=== PATIENT | female | born 1940 ===

== ENCOUNTER → 2023-12-17 12:22 | Outpatient (REF) | payer MEDICARE, SELFPAY ==
[2023-12-18 12:55] LABS: Urine Albumin Trace (Neg - Trace); Urine Bilirubin Negative (Negative); Urine Character Clear (Clear); Urine Color Yellow; Urine Glucose Negative (Negative); Urine Ketone Trace (Negative); Urine Leukocyte Trace (Negative); Urine Nitrite Negative (Negative); Urine Occult Blood Negative (Negative); Urine Urobilinogen Negative (Neg - 1+)
[2023-12-18 13:21] LABS: Urine Mucus Many
[2023-12-18 13:22] LABS: Urine Amorphous Seen; Urine Red Blood Cell 0-2 /HPF (0-2); Urine Squamous Cell 0-2 /LPF (Few); Urine Urothelial Cell 0-2 /LPF (FEW); Urine White Cell 0-2 /HPF (0-5)
== END ==
LOC: OLABSOL 12:22
PROVIDERS: ATTENDING PHYSICIAN Nurse Practitioner Gerontology
DX: N39.0 Urinary tract infection, site not specified (principal)
CPT/HCPCS: 81003; 81015; 87086

== ENCOUNTER → 2023-12-18 11:43 | Outpatient (REF) | payer MEDICARE, SELFPAY ==
[2023-12-18 12:52] LABS: % Basophils 0.7 % (0-2); % Eosinophils 4.1 % (0-6); % Immature Granulocytes 0.2 % (0-0.5); % Lymphocytes 31.8 % (20.5-51.1); % Monocytes 12.5 % (1.7-9.3); % Neutrophils 50.7 % (42.2-75.2); Absolute Eosinophils 0.3 10^3/uL (0-0.7); Absolute Lymphocytes 1.9 10^3/uL (1.2-3.4); Absolute Monocytes 0.8 10^3/uL (0.1-0.6); Absolute Neutrophils 3.1 10^3/uL (1.4-6.5); Hematocrit 34.2 % (37.0-47.0); Hemoglobin 11.3 g/dL (12.0-16.0); Mean Corpuscular Hgb 28.4 pg (27.0-31.0); Mean Corpuscular Volume 85.9 fL (81.0-99.0); Mean Platelet Volume 10.4 fL (7.4-10.4); Nucleated Red Blood Cells % 0 %; Platelet Count 218 10^3/uL (130-400); Red Blood Cell Count 3.98 10^6/uL (4.20-5.40); White Blood Cell Count 6.1 10^3/uL (4.8-10.8)
[2023-12-18 13:05] LABS: ALT (SGPT) 12 U/L (0-35); AST (SGOT) 26 U/L (14-36); Albumin 3.4 g/dl (3.5-5.0); Alkaline Phosphatase 97 U/L (38-126); Blood Urea Nitrogen 19 mg/dl (7-17); Calcium 8.9 mg/dl (8.4-10.2); Carbon Dioxide 26 mmol/L (22-30); Chloride 105 mmol/L (98-107); Glucose 85 mg/dl (70-99); HDL Cholesterol 39 mg/dl; LDL Cholesterol, Calculated 118 mg/dl; Sodium 136 mmol/L (135-145); Total Cholesterol 172 mg/dl (50-199); Total Protein 6.4 g/dl (6.3-8.2); Triglyceride 78 mg/dl (10-149); Very Low Density Lipoprotein 15 mg/dl (0-30); eGFR > 60.00
[2023-12-18 13:21] LABS: Free T4 0.98 ng/dl (0.78-2.19)
[2023-12-18 13:34] LABS: TSH 2.49 uIU/ml (0.47-4.68)
[2023-12-18 13:54] LABS: Vitamin B12 545 pg/ml (239-931)
[2023-12-18 14:56] LABS: Glycohemoglobin (HgbA1c) 5.5 % (4.0-5.6)
== END ==
LOC: OLABSOL 11:43
PROVIDERS: ATTENDING PHYSICIAN Nurse Practitioner Gerontology
DX: D64.9 Anemia, unspecified (principal); N39.0 Urinary tract infection, site not specified; D51.9 Vitamin B12 deficiency anemia, unspecified; E03.9 Hypothyroidism, unspecified; E78.5 Hyperlipidemia, unspecified; E55.9 Vitamin D deficiency, unspecified; E11.9 Type 2 diabetes mellitus without complications
CPT/HCPCS: 36415; 80053; 80061; 82306; 82607; 83036; 83735; 84439; 84443; 85025

== ENCOUNTER 2023-12-24 19:19 | Emergency (ER) | payer OTHER, SELFPAY ==
[2023-12-24 19:25] VITALS: BP 122/75
[2023-12-24 22:00] VITALS: BP 127/76
--- NOTE | 2023-12-24 23:00 | ED.GENMED ---
History of Present Illness
General
Chief Complaint: Fall
Source: family (Daughter)
Exam Limitations: dementia (But will answer some questions)
Travel History
Have you had any contact with someone who has COVID-19?: No
Do you have any symptoms of coronavirus? Fever > 100 degrees, chills, cough, shortness of breath, sore throat, loss of taste or smell, muscle aches, or headache?: No
History of Present Illness
History of Present Illness:
This is a 83 year old male that is brought in by ambulance with c/o fall. Daughter states that he is from [place]. States that he has only been there for a week and 2 days. States that he fell last night as he slid of the bed and he was fine. States
that he fell at 5:30am today and then again at 6:30pm. States that it was unwitnessed and they believe that patient hit his head on the Bedside table. States that she does not believe that there was any LOC. States that he has had a cough for the
past few weeks and it is getting better. States that he has an appointment tomorrow with the PCP and the Psychiatrist as he has not been sleeping well and getting up at night. Denies any fever, chills, chest pain, SOB, abd pain, nausea, vomiting,
diarrhea, headache, urinary burning.
Past History
Past History
ED Past Medical History: COPD, [place], Psychiatric (Anxiety, Depression) and Other (Alzheimer's Dementia)
ED Past Surgical History: Cardiac (Stent)
Social History
Tobacco: Former smoker
Alcohol: None
Personal:
Living: [facility]
Review of Systems
Review of Systems
Unable to obtain full review of systems at this time due to: dementia
Other source history: family
All Other Systems: ROS reviewed and negative except as documented in HPI and ROS
Constitutional: Reports no symptoms; Denies fever or chills
EENT: Reports no symptoms
Respiratory: Reports cough; Denies trouble breathing
Cardiac: Reports no symptoms; Denies chest pain
ABD/GI: Reports no symptoms; Denies abdominal pain, nausea, vomiting or diarrhea
: Reports no symptoms; Denies dysuria, frequency or urgency
Musculoskeletal: Reports no symptoms
Skin: Reports no symptoms
Neurological: Reports no symptoms; Denies dizzy or headache
Psychiatric: Reports no symptoms
Phy Exam
General Physical Exam
General Presentation: no apparent distress
General age: appears stated age
General Skin: warm and dry
General Habitus: elderly
General Mental: usual mental status
General Hydration: appears well hydrated
ENT Exam
ENT Exam: TM's normal, pharynx normal and neck supple
Eye Exam
Eye Exam: EOMI
Cardiovascular Exam
Cardiovascular Exam: regular rate/rhythm, no edema and normal peripheral pulses
Pulmonary Exam
Pulmonary Exam: lungs clear, no respiratory distress, no rales, chest non tender, no crackles, no rhonchi, no wheezing and no cough
Gastrointestinal Exam
Gastrointestinal Exam: normal bowel sounds, non tender, soft, no organomegaly, no pulsatile mass and non distended
Musculoskeletal Exam
Musculoskeletal Exam: full ROM, no edema and other (Negative for any cervical neck or spinal tenderness. Negative for discomfort with flexion of the knee's, inversion or eversion. )
Skin Exam
Skin Exam: normal color, warm/dry, no rash, no petechia and other (abrasion to the right forehead)
Psychiatric Exam
Psychiatric Exam: normal mood/affect
Course
Orders/Labs/Results
Orders:
Orders
12/24/23 19:29
CT Head W/o Iv Contrast Urgent
Comment: bruising to right forehead
Reason For Exam: fall, headstrike. unwitnessed.
12/24/23 19:30
Cervical Spine wo Contrast CT [CT Cervical Spine W/o Iv Contr] Urgent
Comment:
Reason For Exam: fall, headstrike. Hx of dementia.
12/24/23 23:00
0.9% Sodium Chloride 500 ml [Nss] 500 ml IV BOLUS
12/24/23 23:49
Complete Blood Count/With Diff Urgent
Comprehensive Metabolic Panel Urgent
Abnormal Lab Results
12/24/23
23:49
RBC 4.03 L 10^6/uL
(4.70-6.10)
Hgb 11.4 L g/dL
(13.0-18.0)
Hct 33.4 L %
(39.0-52.0)
Absolute Monos (auto) 0.7 H 10^3/uL
(0.1-0.6)
Monocytes % 11.0 H %
(1.7-9.3)
Eosinophils % 7.0 H %
(0-6)
Potassium 3.4 L mmol/L
(3.5-5.1)
Chloride 109 H mmol/L
(98-107)
BUN 31 H mg/dl
(9-20)
12/24/23 23:49
12/24/23 23:49
H/H slightly low. Chloride slightly elevated. Dehydration.
Vital Signs
Initial and Last Documented VS:
Initial Vital Signs
Temp Pulse Resp BP Pulse Ox
97.7 F 58 18 122/75 96
12/24/23 19:25 12/24/23 19:25 12/24/23 19:25 12/24/23 19:25 12/24/23 19:25
Last Documented Vital Signs
Temp Pulse Resp BP Pulse Ox
97.7 F 48 18 115/70 99
12/24/23 19:25 12/24/23 23:52 12/24/23 19:25 12/24/23 23:52 12/24/23 23:52
MDM/Problems Addressed
Differential Diagnosis Includes:
Accidental fall,
MDM/Problems Addressed:
This is a 83 year old male that comes in with c/o fall. Daughter states that the patient has fallen several times in the past 2 days. States that they checked a urine and this is negative. States that she is concerned that he is dehydrated. States
that he is meeting with the PCP and his Psychiatrist tomorrow and they are going to change his medications around.
Will get CT head and neck. Will check labs and given IV fluids.
Chronic conditions affecting care:
Dementia
Acute Exacerbation and/or Progression of Chronic Illness:
Dementia
*Radiology
Radiology exam reviewed: radiology read reviewed (CT head-No evidence of acute intracranial abnormality. CT cervical spine-NO evidence of acute intracranial abnormality. Patchy reticulonodular increased markings within the visualized upper lungs,
most likely representing chronic parenchymal disease/fibrosis, but with no comparison examination of) and other (CT cont- of the chest available. )
*Pulse Oximetry
Patient hypoxic: no
*EKG
Interpreted by ED Provider?: NA
Rate: EKG- N/A
*Station Mechanic Apprentice Interpretation
Rate: Station Mechanic Apprentice- N/A
*Critical Care Note
Total Time (30-74mins, 75-104mins- exclusive of procedures): Not Applicable
ED Attending Note
-
Portions of this chart may have been created with voice recognition software.� Occasional wrong word or��sound alike� substitutions may have occurred due to the inherent limitations of voice recognition software.
Discharge Plan
Departure
Patient Disposition: Shelter/SNF
Date of Disposition: 12/25/23
Time of Disposition: 00:30
Patient with high blood pressure during this ER visit?: No
Condition: Good
Covid-19: Not Applicable
Discharge Problem:
Accidental fall, Abrasion of forehead, Dehydration
Instructions: Skin Abrasions (DC), Dehydration, Adult ED, Fall Prevention for Older Adults
Referrals:
Jen Hall, [Family Provider] - Follow up in 2-3 days
Activity Restrictions/Additional Instructions:
As discussed, patient CT of the head and cervical spine is negative. Patient was given IV fluids to help with dehydrated. Please increase patient water intake to 8-8oz glasses daily. Please follow up with the family doctor and the Psychiatrist as
scheduled tomorrow. IF YOU HAVE ANY OTHER CONCERNS PLEASE RETURN TO THE EMERGENCY ROOM.
Interventions
Interventions:
*Risk Screen - Suicide Last Done: 12/24/23 19:25
*General Assessment Last Done: 12/24/23 19:25
*Neglect/Abuse Screening Last Done: 12/24/23 19:25
ED- Neurological Assessment Last Done: 12/24/23 21:58
Discharge Date and Time
Print Language: ITALIAN
[2023-12-24] MEDS: NSS 500 IV (23:48)
[2023-12-24 23:52] VITALS: BP 115/70
[2023-12-25 00:05] LABS: % Basophils 0.8 % (0-2); % Immature Granulocytes 0.2 % (0-0.5); % Lymphocytes 32.8 % (20.5-51.1); % Neutrophils 48.2 % (42.2-75.2); Absolute Basophils 0.1 10^3/uL (0-0.2); Absolute Eosinophils 0.4 10^3/uL (0-0.7); Absolute Lymphocytes 2.1 10^3/uL (1.2-3.4); Absolute Monocytes 0.7 10^3/uL (0.1-0.6); Hematocrit 33.4 % (39.0-52.0); Hemoglobin 11.4 g/dL (13.0-18.0); Mean Corp Hgb Conc. 34.1 g/dL (33.0-37.0); Mean Corpuscular Hgb 28.3 pg (27.0-31.0); Mean Corpuscular Volume 82.9 fL (80.0-94.0); Mean Platelet Volume 9.6 fL (7.4-10.4); Nucleated Red Blood Cells % 0 % (-); Platelet Count 231 10^3/uL (130-400); Red Blood Cell Count 4.03 10^6/uL (4.70-6.10); Red Cell Dist. Width 14.3 % (11.5-14.5); White Blood Cell Count 6.3 10^3/uL (4.8-10.8)
[2023-12-25 00:17] LABS: ALT (SGPT) 18 U/L (0-50); AST (SGOT) 34 U/L (17-59); Albumin 3.6 g/dl (3.5-5.0); Alkaline Phosphatase 92 U/L (38-126); Blood Urea Nitrogen 31 mg/dl (9-20); Calcium 9.2 mg/dl (8.4-10.2); Carbon Dioxide 27 mmol/L (22-30); Chloride 109 mmol/L (98-107); Glucose 88 mg/dl (70-99); Potassium 3.4 mmol/L (3.5-5.1); Sodium 141 mmol/L (135-145); Total Bilirubin 0.8 mg/dl (0.2-1.3); Total Protein 6.7 g/dl (6.3-8.2); eGFR > 60.00
[2023-12-25 03:17] VITALS: BP 138/88
[2023-12-25] MEDS: TYLENOL 1000 MG PO (03:24)
== END 2023-12-25 04:07 ==
LOC: EMR 19:19
PROVIDERS: Clinical Nurse Specialist Family Health; EMERGENCY PHYSICIAN Emergency Medicine; FAMILY PHYSICIAN Hospitalist
DX: S09.90XA Unspecified injury of head, initial encounter (principal); S00.81XA Abrasion of other part of head, initial encounter; W19.XXXA Unspecified fall, initial encounter; E86.0 Dehydration; F03.90 Unspecified dementia, unspecified severity, without behavioral disturbance, psychotic disturbance, mood disturbance, and anxiety
CPT/HCPCS: 99284; 96360; 70450; 72125; 80053; 85025

== ENCOUNTER → 2024-05-17 10:12 | Outpatient (REF) | payer OTHER, SELFPAY | LOC: RST 10:12 | DX: J18.9 Pneumonia, unspecified organism (principal); R13.12 Dysphagia, oropharyngeal phase | CPT/HCPCS: 74230; 92611 ==

== ENCOUNTER 2024-09-29 09:17 | Emergency (ER) | payer OTHER, SELFPAY ==
[2024-09-29 09:23] VITALS: BP 104/67
--- NOTE | 2024-09-29 09:41 | ED.GENMED ---
History of Present Illness
General
Chief Complaint: Fall
Time Seen by Provider: 09/29/24 09:27
History of Present Illness
History of Present Illness:
83 yo male presents to the Emergency Department for evaluation after an unwitnessed fall. Found on floor of his nursing facility with blood on his face, was then bathed before sending to the ED. Pt cannot provide any historical details.
Past History
Past History
ED Past Medical History: COPD, [place], Psychiatric (Anxiety, Depression) and Other (Alzheimer's Dementia)
ED Past Surgical History: Cardiac (Stent)
Social History
Tobacco: Former smoker
Alcohol: None
Personal:
Living: residential
Review of Systems
Review of Systems
Allergies reviewed?: Yes
All Other Systems: ROS reviewed and negative except as documented in HPI and ROS
Phy Exam
Physical Exam
Physical Exam:
GEN: Well appearing, NAD, WDWN
HEENT: Minor laceration to R lateral eyebrow w/o bleeding, faint ecchymosis; Oral mucosa moist, no scleral icterus
Cardiac: Regular rate
Lung: No respiratory distress, no tachypnea
MSK: No gross deformity or injuries
Skin: Good color, no pallor or jaundice, no rashes
Neuro: Alert, follows commands, profoundly confused; moves all extremities freely
Psych: Calm, cooperative
Course
Orders/Labs/Results
Orders:
Orders
09/29/24 09:29
Electrocardiogram (*1) Urgent
Reason for Study: Bradycardia / Tachycardia
EKG- Treatment ONCE
09/29/24 09:31
Complete Blood Count/With Diff Urgent
Comprehensive Metabolic Panel Urgent
Magnesium Urgent
09/29/24 09:33
CT Cervical Spine W/o Iv Contr Urgent
Comment:
Reason For Exam: fall
09/29/24 09:34
CT Head W/o Iv Contrast Urgent
Comment:
Reason For Exam: fall head injury
09/29/24 12:15
CR Leg Tibia/fibula Right 2 Vw Urgent
Comment:
Reason For Exam: fall
Abnormal Lab Results
09/29/24
09:31
RBC 4.32 L 10^6/uL
(4.70-6.10)
Hgb 12.4 L g/dL
(13.0-18.0)
Hct 37.1 L %
(39.0-52.0)
Eosinophils % 7.6 H %
(0-6)
BUN 25 H mg/dl
(9-20)
09/29/24 09:31
09/29/24 09:31
Vital Signs
Initial and Last Documented VS:
Initial Vital Signs
Temp Pulse Resp BP Pulse Ox
97.4 F 46 16 104/67 93
09/29/24 09:23 09/29/24 09:23 09/29/24 09:23 09/29/24 09:23 09/29/24 09:23
Last Documented Vital Signs
Temp Pulse Resp BP Pulse Ox
97.4 F 55 18 119/77 98
09/29/24 09:23 09/29/24 13:15 09/29/24 13:15 09/29/24 13:15 09/29/24 13:15
MDM/Problems Addressed
MDM/Problems Addressed:
Imaging reveals no evidence of intracranial or cervical spine injury. Labs are reassuring. No indication for primary closure of the wound to the right side of the head. He does have mild bruising to the anterior right knee and right lower leg
however x-rays show no appreciable fractures. Discharged back to his nursing facility in stable condition
*Critical Care Note
Total Time (30-74mins, 75-104mins- exclusive of procedures): Not Applicable
ED Attending Note
-
Portions of this chart may have been created with voice recognition software.� Occasional wrong word or��sound alike� substitutions may have occurred due to the inherent limitations of voice recognition software.
Discharge Plan
Departure
Patient Disposition: Home (Routine Discharge)
Date of Disposition: 09/29/24
Time of Disposition: 11:02
Patient with high blood pressure during this ER visit?: No
Discharge Problem:
Unwitnessed fall, Eyebrow laceration
Activity Restrictions/Additional Instructions:
CT scans of the head and neck as well as x-ray of the right leg showed no evidence for injuries
Interventions
Interventions:
*Nursing Disposition Last Done: 09/29/24 13:13
Discharge Date and Time
Print Language: SAMMARINESE
[2024-09-29 09:53] LABS: % Basophils 0.7 % (0-2); % Eosinophils 7.6 % (0-6); % Immature Granulocytes 0.4 % (0-0.5); % Lymphocytes 24.2 % (20.5-51.1); % Monocytes 8.7 % (1.7-9.3); % Neutrophils 58.4 % (42.2-75.2); Absolute Eosinophils 0.4 10^3/uL (0-0.7); Absolute Lymphocytes 1.4 10^3/uL (1.2-3.4); Absolute Monocytes 0.5 10^3/uL (0.1-0.6); Absolute Neutrophils 3.3 10^3/uL (1.4-6.5); Hematocrit 37.1 % (39.0-52.0); Hemoglobin 12.4 g/dL (13.0-18.0); Mean Corp Hgb Conc. 33.4 g/dL (33.0-37.0); Mean Corpuscular Hgb 28.7 pg (27.0-31.0); Mean Corpuscular Volume 85.9 fL (80.0-94.0); Mean Platelet Volume 9.7 fL (7.4-10.4); Nucleated Red Blood Cells % 0 % (-); Platelet Count 200 10^3/uL (130-400); Red Blood Cell Count 4.32 10^6/uL (4.70-6.10); Red Cell Dist. Width 14.4 % (11.5-14.5); White Blood Cell Count 5.7 10^3/uL (4.8-10.8)
[2024-09-29 10:00] VITALS: BP 104/66
[2024-09-29 10:47] LABS: ALT (SGPT) 14 U/L (0-50); AST (SGOT) 24 U/L (17-59); Albumin 3.6 g/dl (3.5-5.0); Alkaline Phosphatase 86 U/L (38-126); Blood Urea Nitrogen 25 mg/dl (9-20); Calcium 8.9 mg/dl (8.4-10.2); Carbon Dioxide 26 mmol/L (22-30); Chloride 107 mmol/L (98-107); Glucose 92 mg/dl (70-99); Magnesium 2.1 mg/dl (1.6-2.3); Potassium 4.2 mmol/L (3.5-5.1); Sodium 140 mmol/L (135-145); Total Bilirubin 0.7 mg/dl (0.2-1.3); Total Protein 6.5 g/dl (6.3-8.2); eGFR > 60.00
[2024-09-29 12:06] VITALS: BP 105/69
--- NOTE | 2024-09-29 13:12 | EDRN ---
RN attempted report to [facility]. Answering machine received. Awaiting callback. Acute Care EMS at ED to machine pecan picker patient.
[2024-09-29 13:15] VITALS: BP 119/77
== END 2024-09-29 13:13 | disposition home or self-care (01) ==
LOC: EMR 09:17
PROVIDERS: Physician Assistant; EMERGENCY PHYSICIAN Emergency Medicine
DX: S01.111A Laceration without foreign body of right eyelid and periocular area, initial encounter (principal); S00.11XA Contusion of right eyelid and periocular area, initial encounter; S80.11XA Contusion of right lower leg, initial encounter; W19.XXXA Unspecified fall, initial encounter; G30.9 Alzheimer's disease, unspecified; F02.80 Dementia in other diseases classified elsewhere, unspecified severity, without behavioral disturbance, psychotic disturbance, mood disturbance, and anxiety; J44.9 Chronic obstructive pulmonary disease, unspecified; F41.9 Anxiety disorder, unspecified; F32.A Depression, unspecified; I25.2 Old myocardial infarction; Z87.891 Personal history of nicotine dependence; Z95.5 Presence of coronary angioplasty implant and graft
CPT/HCPCS: 99285; 70450; 72125; 73590; 80053; 83735; 85025; 93005

== ENCOUNTER 2024-10-02 19:42 | Emergency (ER) | payer OTHER, SELFPAY ==
[2024-10-02 19:44] VITALS: BP 125/76
[2024-10-02 20:05] LABS: % Basophils 0.6 % (0-2); % Eosinophils 4.2 % (0-6); % Immature Granulocytes 0.3 % (0-0.5); % Lymphocytes 24.8 % (20.5-51.1); % Monocytes 8.8 % (1.7-9.3); % Neutrophils 61.3 % (42.2-75.2); Absolute Eosinophils 0.3 10^3/uL (0-0.7); Absolute Lymphocytes 1.8 10^3/uL (1.2-3.4); Absolute Monocytes 0.6 10^3/uL (0.1-0.6); Absolute Neutrophils 4.4 10^3/uL (1.4-6.5); Hematocrit 38.3 % (39.0-52.0); Hemoglobin 12.7 g/dL (13.0-18.0); Mean Corp Hgb Conc. 33.2 g/dL (33.0-37.0); Mean Corpuscular Hgb 28.9 pg (27.0-31.0); Mean Corpuscular Volume 87.2 fL (80.0-94.0); Mean Platelet Volume 9.6 fL (7.4-10.4); Nucleated Red Blood Cells % 0 % (-); Platelet Count 229 10^3/uL (130-400); Red Blood Cell Count 4.39 10^6/uL (4.70-6.10); Red Cell Dist. Width 14.4 % (11.5-14.5); White Blood Cell Count 7.2 10^3/uL (4.8-10.8)
[2024-10-02 20:27] LABS: ALT (SGPT) 13 U/L (0-50); AST (SGOT) 20 U/L (17-59); Albumin 3.7 g/dl (3.5-5.0); Alkaline Phosphatase 110 U/L (38-126); Blood Urea Nitrogen 26 mg/dl (9-20); Calcium 8.9 mg/dl (8.4-10.2); Carbon Dioxide 23 mmol/L (22-30); Chloride 106 mmol/L (98-107); Creatine Phosphokinase 71 U/L (55-170); Glucose 115 mg/dl (70-99); Potassium 4.5 mmol/L (3.5-5.1); Sodium 139 mmol/L (135-145); Total Bilirubin 0.5 mg/dl (0.2-1.3); Total Protein 6.7 g/dl (6.3-8.2); eGFR > 60.00
[2024-10-02 21:14] VITALS: BP 115/68
[2024-10-02 21:15] VITALS: BMI 19.8
[2024-10-02] MEDS: ADACEL 0.5 ML IM (21:43)
--- NOTE | 2024-10-02 21:50 | ED.GENMED ---
History of Present Illness
<Jenny Seaman PA-C - Last Filed: 10/03/24 23:30>
General
Chief Complaint: Fall
Source: patient and snf records
Exam Limitations: dementia
Time Seen by Provider: 10/02/24 21:15
Nursing documentation reviewed up to this point in time: agreed with
History of Present Illness
History of Present Illness:
Patient is an 83-year-old male with history dementia, COPD presenting to the emergency department via EMS from nursing facility after unwitnessed fall. Patient unable to contribute to history given history of dementia. Did attempt to contact
nursing facility although could not get through to phone lines. According to triage note and EMS record�patient was found on the floor in his room. He is unsure how long he was on the ground. Patient does present with some superficial abrasions
to his right forehead and chin.
Patient denies any current headache, neck pain, chest pain, shortness of breath, abdominal pain, extremity pain.
Patient is on any blood thinners.
Past History
<Jenny Seaman PA-C - Last Filed: 10/03/24 23:30>
Past History
ED Past Medical History: COPD, [place], Psychiatric (Anxiety, Depression) and Other (Alzheimer's Dementia)
ED Past Surgical History: Cardiac (Stent)
Social History
Tobacco: Former smoker
Alcohol: None
Personal:
Living: snf
Phy Exam
<Jenny Seaman PA-C - Last Filed: 10/03/24 23:30>
Physical Exam
Physical Exam:
GENERAL: No acute distress
HEENT: Superficial abrasion to right frontal scalp and chin with very small laceration to lower lip, mild contusion to right lateral cheek. Dentition intact. No periorbital swelling or tenderness. No facial tenderness. No obvious deformity.
NECK: no midline tenderness, normal range of motion, no other obvious trauma
BACK: no midline tenderness, no other obvious trauma
CHEST: no tenderness, no flail segment, no subcutaneous emphysema, no other obvious trauma
LUNGS: clear to auscultation bilaterally
CARDIOVASCULAR: regular rate and rhythm
ABDOMEN: soft, non-tender, no masses, no other obvious trauma
PELVIS: stable, no obvious injury
EXTREMITIES: moving all extremities, no tenderness with internal/external rotation of bilateral hips, distal pulses intact, no other obvious trauma
NEUROLOGIC: awake, alert x [address], not time, no focal deficits.
Course
<Jenny Seaman PA-C - Last Filed: 10/03/24 23:30>
Orders/Labs/Results
Orders:
Orders
10/02/24 19:49
CT Head W/o Iv Contrast Urgent
Comment:
Reason For Exam: fall, unknown head strike
10/02/24 19:56
CPK [Creatine Phosphokinase] Urgent
Complete Blood Count/With Diff Urgent
Comprehensive Metabolic Panel Urgent
10/02/24 21:27
Electrocardiogram (*1) Urgent
Reason for Study: Fatigue / Weakness
Cervical Spine wo Contrast CT [CT Cervical Spine W/o Iv Contr] Urgent
Comment:
Reason For Exam: unwitnessed fall
EKG- Treatment ONCE
Tetanus/Diphth/Acelpertussis [Adacel] 0.5 ml IM .ONCE ONE
Abnormal Lab Results
10/02/24
19:56
RBC 4.39 L 10^6/uL
(4.70-6.10)
Hgb 12.7 L g/dL
(13.0-18.0)
Hct 38.3 L %
(39.0-52.0)
BUN 26 H mg/dl
(9-20)
Glucose 115 H mg/dl
(70-99)
10/02/24 19:56
10/02/24 19:56
Vital Signs
Initial and Last Documented VS:
Initial Vital Signs
Temp Pulse Resp BP Pulse Ox
98.1 F 84 16 125/76 98
10/02/24 19:44 10/02/24 19:44 10/02/24 19:44 10/02/24 19:44 10/02/24 19:44
Last Documented Vital Signs
Temp Pulse Resp BP Pulse Ox
98.1 F 63 16 115/62 99
10/02/24 19:44 10/02/24 21:58 10/02/24 21:58 10/02/24 22:00 10/02/24 22:30
<Jodie De Jesus, DO - Last Filed: 10/02/24 22:36>
Orders/Labs/Results
Orders:
Orders
10/02/24 19:49
CT Head W/o Iv Contrast Urgent
Comment:
Reason For Exam: fall, unknown head strike
10/02/24 19:56
CPK [Creatine Phosphokinase] Urgent
Complete Blood Count/With Diff Urgent
Comprehensive Metabolic Panel Urgent
10/02/24 21:27
Electrocardiogram (*1) Urgent
Reason for Study: Fatigue / Weakness
Cervical Spine wo Contrast CT [CT Cervical Spine W/o Iv Contr] Urgent
Comment:
Reason For Exam: unwitnessed fall
EKG- Treatment ONCE
Tetanus/Diphth/Acelpertussis [Adacel] 0.5 ml IM .ONCE ONE
Abnormal Lab Results
10/02/24
19:56
RBC 4.39 L 10^6/uL
(4.70-6.10)
Hgb 12.7 L g/dL
(13.0-18.0)
Hct 38.3 L %
(39.0-52.0)
BUN 26 H mg/dl
(9-20)
Glucose 115 H mg/dl
(70-99)
10/02/24 19:56
10/02/24 19:56
Vital Signs
Initial and Last Documented VS:
Initial Vital Signs
Temp Pulse Resp BP Pulse Ox
98.1 F 84 16 125/76 98
10/02/24 19:44 10/02/24 19:44 10/02/24 19:44 10/02/24 19:44 10/02/24 19:44
Last Documented Vital Signs
Temp Pulse Resp BP Pulse Ox
98.1 F 63 16 115/62 99
10/02/24 19:44 10/02/24 21:58 10/02/24 21:58 10/02/24 22:00 10/02/24 22:30
<Jenny Seaman PA-C - Last Filed: 10/03/24 23:30>
MDM/Problems Addressed
Differential Diagnosis Includes:
Not limited to: Facial contusion, facial abrasion, intra cerebral hemorrhage, cervical spine fracture, etc.
MDM/Problems Addressed:
83-year-old male with dementia presenting after unwitnessed fall at nursing facility and concern for head strike. No blood thinners. Vital stable. He is afebrile. On exam�patient does have abrasion to right frontal scalp, small contusion to
right temporal region, and small abrasion to chin. No periorbital edema or tenderness. No deformity noted to face. There is no C-spine tenderness. Chest wall nontender with clear breath sounds bilaterally. Abdomen soft and nontender without
ecchymoses. No evidence of traumatic extremity injury. Basic labs performed in triage without any clinically significant abnormalities. A CK was also performed given unknown time on ground which is normal. Head CT shows no acute intracranial
abnormalities. Given unknown circumstances surrounding fall�will obtain CT cervical spine although low suspicion for fracture given neck nontender. Do not suspect facial or orbit fracture. will check EKG. No indication for primary closure of
abrasions on face. Will update tetanus and irrigate wounds with normal saline. Anticipate discharge home pending cervical spine CT.
Chronic conditions affecting care:
Dementia
Acute Exacerbation and/or Progression of Chronic Illness:
N/A
<Jenny Seaman PA-C - Last Filed: 10/03/24 23:30>
*Radiology
Radiology exam reviewed: radiology read reviewed
*Pulse Oximetry
Patient hypoxic: no
*EKG
Interpreted by ED Provider?: Yes
EKG Intrepretation Date: 10/02/24
Interpretation: abnormal
Comparison EKG: changes noted
Heart Rate: 68
Rate: normal
Rhythm: sinus
Ischemia: no ischemia
*Basketball Player Interpretation
Rate: Basketball Player- N/A
*Critical Care Note
Total Time (30-74mins, 75-104mins- exclusive of procedures): Not Applicable
<Jenny Seaman PA-C - Last Filed: 10/03/24 23:30>
Update Note
Update Note:
Update: Cervical spine CT without acute abnormalities. Patient has remained stable without any evidence of traumatic injury. Stable for discharge back to facility.
ED Attending Note
<Jenny Seaman PA-C - Last Filed: 10/03/24 23:30>
-
Portions of this chart may have been created with voice recognition software.� Occasional wrong word or��sound alike� substitutions may have occurred due to the inherent limitations of voice recognition software.
<Jodie De Jesus DO - Last Filed: 10/02/24 22:36>
ED Attending Note
Patient seen and examined by attending physician: Yes
I performed the substantive portion of visit, reviewed & personally made and approve the management plan that is documented in note by myself or SAMUEL.: Yes
I performed a history and physical exam of patient and discussed management with resident, I reviewed resident's note and agree with documented findings and plan of care.: Yes
ED Attending Note:
83-year-old male with history of dementia presenting from nursing facility for unwitnessed fall. Patient arrives with evidence of trauma to the face. Patient is very limited historian due to his dementia, notes that he fell in the attic. He
currently denies any pain. Denies any chest pain, difficulty breathing, facial pain. No report of any blood thinners per paperwork. Vital signs are normal
On exam patient is in no acute distress. He is awake, alert, however disoriented secondary to known severe dementia. He does arrive with evidence of facial trauma, abrasion to the right side of the face, slightly swollen lip without significant
laceration. Jaw appears aligned. No significant orbits. No midline cervical neck tenderness. Otherwise no significant signs of trauma to extremities. No tenderness to the chest/abdomen/pelvis. Patient screening laboratory analysis,
unremarkable. Plan for CT imaging and CT spine imaging, with plan for discharge back to nursing facility
Discharge Plan
Departure
Patient Disposition: Home (Routine Discharge)
Date of Disposition: 10/03/24
Time of Disposition: 00:19
Patient with high blood pressure during this ER visit?: No
Covid-19: Not Applicable
Discharge Problem:
Unwitnessed fall, Contusion of face, Abrasion of scalp
Instructions: Head Injury in Adults (DC), Preventing falls in adults
Referrals:
UNKNOWN - PT DOES,NOT KNOW [Family Provider] -
Activity Restrictions/Additional Instructions:
Return to the emergency department with any change in mental status, intractable nausea/vomiting, repeat falls with head strike, worsening of current symptoms, or any other concerns
-As discussed�CT imaging of head and cervical spine showed no acute abnormalities. Wounds were irrigated with normal saline. You did receive your tetanus shot.
-You can take Tylenol as needed for headache/pain. Stay well-hydrated
-Follow-up with primary care for further evaluation/management as needed
Monitor your symptoms closely return to the emergency department with any acute worsening/new symptoms or any other concerns
Interventions
Interventions:
*Risk Screen - Suicide Last Done: 10/02/24 19:44
*General Assessment Last Done: 10/02/24 19:44
*Neglect/Abuse Screening Last Done: 10/02/24 19:44
ED- Fall Risk Assessment Last Done: 10/02/24 21:17
*ED COVID-19 Vaccine History Last Done: 10/02/24 21:15
*Nursing Disposition Last Done: 10/03/24 01:17
ED-Musculoskeletal Assessment Last Done: 10/02/24 21:16
ED- Neurological Assessment Last Done: 10/02/24 21:17
ED-Skin Assessment Last Done: 10/02/24 21:16
Discharge Date and Time
Discharge Date/Time: 10/03/24 01:19
Print Language: TURKISH
[2024-10-02 22:00] VITALS: BP 115/62
== END 2024-10-03 01:19 ==
LOC: EMR 19:42
PROVIDERS: EMERGENCY PHYSICIAN Student in an Organized Health Care Education/Training Program
DX: S00.83XA Contusion of other part of head, initial encounter (principal); S00.01XA Abrasion of scalp, initial encounter; W19.XXXA Unspecified fall, initial encounter; F02.C0 Dementia in other diseases classified elsewhere, severe, without behavioral disturbance, psychotic disturbance, mood disturbance, and anxiety; G30.9 Alzheimer's disease, unspecified; J44.9 Chronic obstructive pulmonary disease, unspecified; Z87.891 Personal history of nicotine dependence; Z95.5 Presence of coronary angioplasty implant and graft; Z23 Encounter for immunization
CPT/HCPCS: 99284; 90471; 70450; 72125; 80053; 82550; 85025; 90715; 93005

== ENCOUNTER 2024-12-17 01:40 | Inpatient (IN) | payer OTHER, SELFPAY ==
[2024-12-16] VITALS (11 sets, daily range): BP systolic 76–115; BP diastolic 46–96; BMI 20.1
[2024-12-16] MEDS: NSS 1000 IV ×2 (21:44→22:24)
[2024-12-16 21:52] LABS: % Basophils 0.2 % (0-2); % Immature Granulocytes 0.9 % (0-0.5); % Lymphocytes 5.5 % (20.5-51.1); % Neutrophils 87.4 % (42.2-75.2); Absolute Immature Granulocytes 0.2 10^3/uL (0-0.05); Absolute Lymphocytes 1.2 10^3/uL (1.2-3.4); Absolute Monocytes 1.3 10^3/uL (0.1-0.6); Absolute Neutrophils 19.5 10^3/uL (1.4-6.5); Hematocrit 34.9 % (39.0-52.0); Hemoglobin 11.9 g/dL (13.0-18.0); Mean Corp Hgb Conc. 34.1 g/dL (33.0-37.0); Mean Corpuscular Hgb 29.2 pg (27.0-31.0); Mean Corpuscular Volume 85.7 fL (80.0-94.0); Mean Platelet Volume 10.6 fL (7.4-10.4); Nucleated Red Blood Cells % 0 % (-); Platelet Count 176 10^3/uL (130-400); Red Blood Cell Count 4.07 10^6/uL (4.70-6.10); Red Cell Dist. Width 13.7 % (11.5-14.5); White Blood Cell Count 22.3 10^3/uL (4.8-10.8)
[2024-12-16 21:54] LABS: Urine Albumin 3+ (Neg - Trace); Urine Bilirubin Negative (Negative); Urine Character Slightly Cloudy (Clear); Urine Color Yellow; Urine Glucose Negative (Negative); Urine Ketone Negative (Negative); Urine Leukocyte 3+ (Negative); Urine Nitrite Positive (Negative); Urine Occult Blood 4+ (Negative); Urine Specific Gravity 1.015 (<1.030); Urine Urobilinogen 2+ (Neg - 1+); Urine pH 6.5 (5.0-9.0)
[2024-12-16 21:59] LABS: Lactic Acid 3.4 mmol/L (0.7-2.0)
[2024-12-16 22:01] LABS: ALT (SGPT) 13 U/L (0-50); AST (SGOT) 21 U/L (17-59); Albumin 3.5 g/dl (3.5-5.0); Alkaline Phosphatase 108 U/L (38-126); Blood Urea Nitrogen 35 mg/dl (9-20); Calcium 9.5 mg/dl (8.4-10.2); Carbon Dioxide 24 mmol/L (22-30); Chloride 108 mmol/L (98-107); Estimated Creatinine Clearance 49 ml/min; Glucose 113 mg/dl (70-99); Potassium 3.8 mmol/L (3.5-5.1); Sodium 142 mmol/L (135-145); Total Bilirubin 1.2 mg/dl (0.2-1.3); Total Protein 6.8 g/dl (6.3-8.2); eGFR > 60.00
[2024-12-16 22:02] LABS: Urine Squamous Cell 0-2 /LPF (Few)
[2024-12-16 22:03] LABS: Urine White Cell >100 /HPF (0-5)
[2024-12-16 22:04] LABS: Urine Bacteria Many (Negative)
[2024-12-16 22:08] LABS: COVID-19 Antigen Negative (Negative)
--- NOTE | 2024-12-16 23:23 | ED.GENMED ---
History of Present Illness
General
Chief Complaint: Change in Mental Status
Source: patient, records, ambulance crew and [facility]
Exam Limitations: clinical condition and dementia
Time Seen by Provider: 12/16/24 23:15
Nursing documentation reviewed up to this point in time: agreed with
History of Present Illness
History of Present Illness:
84-year-old male with past medical history of dementia, COPD who presents to the emergency department from [facility] in by EMS for evaluation of change in mental status. At baseline patient has significant dementia. Over the past
24 hours staff reports increased lethargy which prompted ER referral. Patient cannot meaningfully participate in history due to his significant dementia.
Past History
Past History
ED Past Medical History: COPD, MA, Psychiatric (Anxiety, Depression) and Other (Alzheimer's Dementia)
ED Past Surgical History: Cardiac (Stent)
Social History
Tobacco: Former smoker
Alcohol: None
Personal:
Living: [facility]
Review of Systems
Review of Systems
Unable to obtain full review of systems at this time due to: dementia
All Other Systems: Not applicable
Phy Exam
Physical Exam
Physical Exam:
General: Laying in bed lethargic but arousable; I was able to get the patient to tell me his name but was only oriented x 1 and does not really respond to other questions
Head: Normocephalic, atraumatic
Eyes: Conjunctiva normal, pupils equal round and reactive to light bilaterally
Throat: Airway intact, handling secretions
Neck: Trachea midline
Lungs: Clear to auscultation bilaterally, no wheezing, rales, rhonchi
Heart: Regular rate and rhythm, no murmurs, gallops, or rubs
Abd: Soft, non distended, no apparent tenderness
Neuro: Generally weak but no focal deficits noted
Extremities: Warm and well-perfused
Scores
Heart Failure Risk
Heart Failure Risk Score: Not Applicable
Heart Score for Chest Pain Patients
STEMI patient?: Not applicable
Withdrawal Assessment of Alcohol
Withdrawal Assessment Completed?: Not applicable
Sepsis
Sepsis Screening
Sepsis Assessment: Sepsis
Sepsis Screening: Lactate >2mmol/L
Sepsis Screen
Sepsis Screen: Sepsis
Date: 12/16/24
Time: 23:18
Course
Orders/Labs/Results
Orders:
Orders
12/16/24 21:26
Cardiac Monitoring- Treatment ONCE
IV Insert/Care/Rem.- Treatment PRN
Straight cath- Treatment ONCE
O2 Therapy [RESP] Urgent
Titrate/Wean O2 to maintain O2 sat greater than (%): 93
Special Instructions: TO MAINTAIN CONTINUOUS O2 SATS > OR = 93%
Pulse Ox/cont/shift [RESP] Urgent
Quantity: 1
Special Instructions: CONTINUOUS
12/16/24 21:35
Complete Blood Count/With Diff Urgent
Comprehensive Metabolic Panel Urgent
Lactic Acid Q4H
Comment: ON ICE, CANCEL 2ND ORDER IF FIRST LACTIC ACID LEVEL <2
Blood Culture Q20M
MYKEL Source: Blood/Venous
Specimen Description:
Comment: Urgent from separate sites. If patient screens positive for possible sepsis
Blood Culture Q20M
MYKEL Source: Blood/Venous
Specimen Description:
Comment: Urgent from separate sites. If patient screens positive for possible sepsis
12/16/24 21:36
COVID-19 Antigen Urgent
Source: Nasal Swab
Urinalysis Reflex To Culture Urgent
Date Specimen was Collected: 12/16/24
Time Specimen was Collected: 21:26
Urine Microscopic Reflex Cult Urgent
Influenza A+B Rapid Molecular Urgent
MYKEL Source: Nasal Swab
Specimen Description:
Urine Culture Urgent
MYKEL Source: U
Specimen Description:
Date Specimen was Collected: 12/16/24
Time Specimen was Collected: 21:26
12/16/24 21:39
Electrocardiogram (*1) Urgent
Reason for Study: Fatigue / Weakness
EKG- Treatment ONCE
12/16/24 21:44
0.9% Sodium Chloride 1000 ml [Nss] 1,000 ml IV BOLUS
12/16/24 22:24
0.9% Sodium Chloride 1000 ml [Nss] 1,000 ml IV BOLUS
12/16/24 23:18
Piperacillin/Tazo 3.375 Gram [Zosyn] 3.375 gram in 50 ml IV NOW
12/16/24 23:19
CR Chest Portable - 1 View Urgent
Comment:
Reason For Exam: sepsis
Reason Study Needs to be Portable: Unable to Transport
12/17/24 00:00
CT Abd/pel Without Iv Or Oral Urgent
Reason For Exam: urosepsis, rule out stone
12/17/24 00:27
Enema- Treatment ONCE
Type: Milk of Molasses
12/17/24 01:30
Lactic Acid Q4H
Comment: ON ICE, CANCEL 2ND ORDER IF FIRST LACTIC ACID LEVEL <2
Abnormal Lab Results
12/16/24 12/16/24
21:35 21:36
WBC 22.3 H 10^3/uL
(4.8-10.8)
RBC 4.07 L 10^6/uL
(4.70-6.10)
Hgb 11.9 L g/dL
(13.0-18.0)
Hct 34.9 L %
(39.0-52.0)
MPV 10.6 H fL
(7.4-10.4)
Abs Immat Gran (auto) 0.2 H 10^3/uL
(0-0.05)
Absolute Neuts (auto) 19.5 H 10^3/uL
(1.4-6.5)
Absolute Monos (auto) 1.3 H 10^3/uL
(0.1-0.6)
Immature Gran % 0.9 H %
(0-0.5)
Neutrophils % 87.4 H %
(42.2-75.2)
Lymphocytes % 5.5 L %
(20.5-51.1)
Chloride 108 H mmol/L
(98-107)
BUN 35 H mg/dl
(9-20)
Glucose 113 H mg/dl
(70-99)
Lactic Acid 3.4 H mmol/L
(0.7-2.0)
Ur Occult Blood Reflex 4+ A
(Negative)
Urine Nitrite (Reflex) Positive A
(Negative)
Urine Urobilinogen 2+ A
(Neg - 1+)
Leukocyte Esterase Rfl 3+ A
(Negative)
Urine RBC 11-15 A /HPF
(0-2)
Urine WBC (Reflex) >100 A /HPF
(0-5)
Urine Bacteria (Reflex) Many A
(Negative)
Urine Albumin (Reflex) 3+ A
(Neg - Trace)
12/16/24 21:35
12/16/24 21:35
Vital Signs
Initial and Last Documented VS:
Initial Vital Signs
Temp Pulse Resp BP Pulse Ox
37.8 C 74 18 76/54 95
12/16/24 21:23 12/16/24 21:23 12/16/24 21:23 12/16/24 21:23 12/16/24 21:23
Last Documented Vital Signs
Temp Pulse Resp BP Pulse Ox
37.8 C 72 20 112/54 98
12/16/24 21:23 12/16/24 22:30 12/16/24 22:30 12/16/24 22:30 12/16/24 22:30
MDM/Problems Addressed
Differential Diagnosis Includes:
UTI, pneumonia, polypharmacy, delirium related to dementia
MDM/Problems Addressed:
84-year-old male presents for increased lethargy. Hypotensive, borderline fever on arrival. Physical exam as above. Labs sent off including a CBC which shows leukocytosis to 22.3. CMP no clinically significant abnormalities. Urinalysis is
positive for infection with nitrites, pyuria and bacteriuria. COVID and flu negative, chest x-ray no lobar pneumonia although generally increased reticular markings right greater than left. Lungs sound generally clear, no hypoxia or
tachypnea�lower suspicion for pneumonia. Will send for a CT to rule out stone/nidus for infection but suspect urosepsis at this point. Cover with Zosyn. Concern for sepsis, blood culture sent; mild hypotension and elevated lactate and so he was
given 30 cc/kg fluid bolus which resulted in blood pressure improvement. Plan for admission pending CT.
CT shows no obstructive uropathy. There is bladder wall thickening which suggests UTI. He also has a large stool ball in the rectum with some wall thickening and stranding which could represent stercoral colitis. Will treat with enema. Case
discussed with hospitalist for admission.
Chronic conditions affecting care:
Dementia
*Radiology
Radiology exam reviewed: preliminary read by ED provider and radiology read reviewed
*Pulse Oximetry
Patient hypoxic: no
*EKG
Interpreted by ED Provider?: Yes
Heart Rate: 68
Rate: normal
Rhythm: sinus
Coden: left axis deviation
Interval: normal interval
QRS Pattern: other (Left anterior fascicular block)
Ischemia: no ischemia
*Critical Care Note
Total Time (30-74mins, 75-104mins- exclusive of procedures): 38
comment:
Critical care statement: A total of 38 minutes of critical care time was provided for this patient. This includes management of unstable vital signs, evaluation of the patient at bedside, frequent reassessment, discussion with
consultants/hospitalist, and review of pertinent medical records. This time was separate from time utilized to perform any aforementioned documented procedures
Data Reviewed
Review of Other/Old Records Reveals: Labs and Records
Source: patient, records, ambulance crew and [facility]
Patient Management
Discussion with other providers: Hospitalist (Discussed with hospitalist) and senior care staff (Discussed with [facility] staff)
Escalation/DeEscalation of care consider admission/obs:
Admission indicated
ED Attending Note
-
Portions of this chart may have been created with voice recognition software.� Occasional wrong word or��sound alike� substitutions may have occurred due to the inherent limitations of voice recognition software.
Discharge Plan
Departure
Patient Disposition: Admit
Date of Disposition: 12/17/24
Time of Disposition: 00:36
Admit to doctor: [facility]
Presentation/result/management discussed w/ accepting MD/DO: Hospitalist
Discharge Problem:
Encephalopathy, Acute UTI, Sepsis, Stercoral colitis
Prescriptions:
No Action
docusate sodium
100 mg PO HS
donepezil
10 mg PO DAILY
escitalopram oxalate
20 mg PO DAILY
midodrine
5 mg PO TID
mirtazapine
7.5 mg PO DAILY
risperidone
0.5 mg PO BID
Referrals:
UNKNOWN,NO INTERVIEW [Family Provider] -
Interventions
Interventions:
*Risk Screen - Suicide Last Done: 12/16/24 21:41
*General Assessment Last Done: 12/16/24 21:52
*Neglect/Abuse Screening Last Done: 12/16/24 21:41
*ED- Fall Risk Assessment Last Done: 12/16/24 21:41
*ED COVID-19 Vaccine History Last Done: 12/16/24 21:41
ED- Pulmonary Assessment Last Done: 12/16/24 21:51
ED- Neurological Assessment Last Done: 12/16/24 21:51
ED- Cardiac Assessment Last Done: 12/16/24 21:51
ED Swallowing Screen Last Done: 12/16/24 21:51
Discharge Date and Time
Print Language: ROMANIAN
[2024-12-16] MEDS: ZOSYN 50 IV (23:36)
[2024-12-17] VITALS (76 sets, daily range): BP systolic 78–144; BP diastolic 49–101; BMI 18.3
--- NOTE | 2024-12-17 01:33 | HPS.HSE ---
Family Physician
-
Family Physician: NO INTERVIEW UNKNOWN
Chief Complaint
-
Lethargy / Change in Mental Status
History of Present Illness
Patient is an 84y M with PMH significant for dementia and COPD who presents to ED from [facility] for evaluation of lethargy / altered mental status. Patient has significant baseline dementia - though he reportedly lives in his own
apartment at [place]. Staff today noted that he was very lethargic and he was sent to the ED for further evaluation. In the ED, patient was noted to be hypotensive with significant leukocytosis. CT scan showed bladder wall thickening and evidence
of constipation / stercoral colitis. UA was consistent with infection.
Patient does not answer questions / follow commands and cannot contribute further to this history.
Milk and molasses enema was administered in the ED with good results.
Medical History
Past Medical History
Past Medical History: Reports Other
Additional Past Medical History:
Senile Dementia
COPD
Past Surgical History: Reports Other
Additional Past Surgical History:
None Known
Social History
Unable to obtain full social history at this time due to: Dementia
Family History
Family History: Unable to Obtain
Allergies / Home Medications
Allergies reflects when Allergies were last updated in [facility].
Home Medications with original date entered in [facility]
Allergy/Medication List:
Allergies
Allergy/AdvReac Type Severity Reaction Status Date / Time
No Known Allergies Allergy Verified 10/02/24 19:49
Home Medications
docusate sodium 100 mg PO HS 12/17/24
donepezil 10 mg PO DAILY 12/17/24
escitalopram oxalate 20 mg PO DAILY 12/17/24
midodrine 5 mg PO TID 12/17/24
mirtazapine 7.5 mg PO DAILY 12/17/24
risperidone 0.5 mg PO BID 12/17/24
Review of Systems
-
Unable to obtain full review of systems at this time due to: Dementia
Physical Exam
Vital Signs
Vital Signs
Temp Pulse Resp BP Pulse Ox
100.1 F 61 18 96/56 97
12/16/24 21:23 12/17/24 00:15 12/17/24 00:15 12/17/24 00:13 12/17/24 00:15
Physical Exam
General: Other (84y M in no apparent distress.)
HEENT: Other (Dry MM. Neck supple.)
Respiratory: Clear; No Wheezes, Rales or Rhonchi
Cardiac: S1/S2 and Regular Rhythm; No Murmur
GI: Soft, Non Tender, Non Distended and Normal Bowel Sounds
Musculoskeletal: No Clubbing, No Cyanosis and No Edema
Neuro: Other (Lethargic. Poorly respnsive. Does not follow commands. Will occasionally say 'no' - no other meaningful communication.)
Laboratory Results
-
12/16/24 21:35
12/16/24 21:35
Laboratory Results
Lactic Acid 3.4 mmol/L (0.7-2.0) H 12/16/24 21:35
Total Bilirubin 1.2 mg/dl (0.2-1.3) 12/16/24 21:35
AST 21 U/L (17-59) 12/16/24 21:35
ALT 13 U/L (0-50) 12/16/24 21:35
Alkaline Phosphatase 108 U/L (38-126) 12/16/24 21:35
Impression/Plan
-
A/P: Patient is an 84y M with PMH significant for dementia and COPD who presents to ED for evaluation of lethargy / altered mental status.
UTI
Stercoral Colitis
Sepsis secondary to the above
Acute TME secondary to the above
- Admit for further evaluation and treatment.
- Patient presents with leukocytosis, lactic acidosis, abnormal UA and evidence of life threatening organ dysfunction in the form of SOTO and TME.
- IV ceftriaxone pending culture data.
- Bladder scan protocol.
- Bowel regimen and follow for results.
- IVF support / resume usual midodrine.
- Follow for clinical improvement.
SOTO
- SCr = 1.1 compared to prior baseline of 0.7.
- IVFs as noted above and follow for return to baseline renal function.
Hypotension
- Patient on midodrine for chronic orthostatic hypotension.
- Resume usual dose.
- IVFs as noted above.
- Follow serial lactate for evidence of improvement / adequate perfusion.
Senile Dementia with Behavioral Disturbance
- Continue usual mood regimen and donepezil.
COPD
- Listed on med rec - though not on any COPD-related mediation / inhalers / etc.
- Follow for any respiratory issues.
- Albuterol PRN.
DVT Prophylaxis: Subcut Heparin
Code Status: Full
[2024-12-17] MEDS: LR 1000 IV ×2 (03:06→21:54)
[2024-12-17 04:15] LABS: Hematocrit 31.1 % (39.0-52.0); Hemoglobin 10.6 g/dL (13.0-18.0); Mean Corp Hgb Conc. 34.1 g/dL (33.0-37.0); Mean Corpuscular Hgb 29.1 pg (27.0-31.0); Mean Corpuscular Volume 85.4 fL (80.0-94.0); Mean Platelet Volume 10.4 fL (7.4-10.4); Platelet Count 149 10^3/uL (130-400); Red Blood Cell Count 3.64 10^6/uL (4.70-6.10); Red Cell Dist. Width 13.9 % (11.5-14.5); White Blood Cell Count 18.6 10^3/uL (4.8-10.8)
[2024-12-17 04:38] LABS: Lactic Acid 1.4 mmol/L (0.7-2.0)
[2024-12-17 04:44] LABS: Blood Urea Nitrogen 32 mg/dl (9-20); Calcium 8.4 mg/dl (8.4-10.2); Carbon Dioxide 23 mmol/L (22-30); Chloride 113 mmol/L (98-107); Estimated Creatinine Clearance 67 ml/min; Glucose 103 mg/dl (70-99); Sodium 144 mmol/L (135-145); eGFR > 60.00
[2024-12-17] MEDS: NSS 500 IV ×2 (04:48→05:39)
--- NOTE | 2024-12-17 05:39 | PTCARENOTE ---
Patient transported to IMU from ED. Received report from Vicky NUNEZ. Pt able to answer orientation questions when directly asked. Pt disoriented to time. Pt extremely lethargic and drowsy but arousable to verbal. Pt hypotensive on arrival. SINA Nuñez
made aware, two 500cc NSS bolus administered with minimal improvement. BP 78/49 MAP 59. SINA Nuñez placed order for Levophed. Levophed initiated. Pt NSR to SB on tele. HR down to 48. Pt on room air SpO2 98%. 99.6 rectal temperature. CC #25 placed
for accurate output. Bladder scanned pt for 25ml. Wounds assessed and documented. Wound care done see worklist. Bed alarm on.
--- NOTE | 2024-12-17 06:02 | W.PN.UPDATE ---
Update Note
Progress Note Update
-Patient is hypotensive with 84/53, hr 56, MAP 64, NSS IV bolus 500cc x2. bp and map dropped down after IVF bolus to 78/49, MAP 59.
-Levophed ordered.
[2024-12-17] MEDS: LEVOPHED 250 IV ×2 (06:09→19:44)
[2024-12-17] MEDS: ARICEPT PO (08:00)
[2024-12-17] MEDS: COLACE PO ×2 (08:00→21:32)
[2024-12-17] MEDS: DESENEX/MITRAZOL/ZEASORB 1 APPLIC TOPICAL ×2 (08:00→21:45)
[2024-12-17] MEDS: MIRALAX PO (08:01)
[2024-12-17] MEDS: LEXAPRO PO (08:01)
[2024-12-17] MEDS: RISPERDAL PO ×2 (08:01→21:32)
[2024-12-17] MEDS: ProAmatine PO ×3 (08:01→18:37)
--- NOTE | 2024-12-17 08:02 | PTCARENOTE ---
see nursing assessment. pt lethargic but open eyes and answers briefly to voice. levophed infusing to keep map above 65, currently at 4 mcg/min. pt too lethargic to take po meds at this time
[2024-12-17] MEDS: HEPARIN 5000 UNITS SC ×2 (08:10→21:44)
[2024-12-17] MEDS: STERILE WATER FOR INJECTION 10 ML IV (08:10)
[2024-12-17] MEDS: ROCEPHIN 1000 MG IV (08:10)
--- NOTE | 2024-12-17 09:00 | CM ---
Patient chart reviewed
IA completed
Spoke with Srikanth at [facility]
Patient resides at [facility] unit
PLOF: Independent, uses a walker
DME: [facility]
PCP: Jen Hall
pharmacy: [address], [place]
PLAN: [facility], pending patient functional status
--- NOTE | 2024-12-17 10:06 | W.PN.HOSP.TC ---
Today's Communication/Plan
-
see plan
Assessment / Plan
Assessment / Plan
84y M with PMH significant for dementia and COPD who presents to ED for evaluation of lethargy / altered mental status.
Gen: NAD, Awake and alert, appears chronically ill
Eyes: EOMI, PERRLA, no scleral icterus.
Neck: supple.
CV: RRR, +S1/S2, no m/r/g.
Resp: CTAB, no rales, wheezes, or rhonchi.
Abd: +BS, soft, NT, ND
Skin: No rashes.
Neuro: CN 2-12 intact, non-focal.
Psych: Normal mood and affect considering underlying dementia.
CXR: Diffuse bilateral coarse linear and reticular interstitial thickening is demonstrated, consistent with pulmonary fibrosis. No focal consolidation to indicate pneumonia. No pneumothorax or pleural effusion.
CT A/P: No renal, ureteral, or urinary bladder calculus. Findings suspicious for cystitis. Mild bilateral hydroureter without evidence of obstructive uropathy. Large solid fecal burden rectum which is moderately distended with minor wall thickening
and surrounding soft tissue stranding. Findings suspicious for possibility of stercoral proctitis. 2.6 cm infrarenal abdominal aortic aneurysm. COPD. Interstitial fibrotic changes. Moderate hiatal hernia.
Septic shock, SOTO, and acute metabolic encephalopathy due to acute UTI and acute stercoral colitis:
-presents with leukocytosis, lactic acidosis, abnormal UA and evidence of life threatening organ dysfunction in the form of SOTO
-cont IV Rocephin
-cont IVFs (lactic acidosis resolved)
-cont bowel regimen
-cont midodrine for chronic orthostatic hypotension
-cont Levophed, wean as tolerated
-leukocytosis improving
Other problems:
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
COPD and pulm fibrosis: not on any COPD-related mediations. Saturating well on RA. Albuterol PRN.
FULL/Heparin
Anticipated Discharge: > 48 hours
Subjective/Interval History
-
Date of Service: December 17, 2024
Pt with dementia. 'I was just crying.'
Objective Data
-
Labs:
Laboratory Results
12/17/24
03:55
WBC 18.6 H
Hgb 10.6 L
Hct 31.1 L
Plt Count 149
Sodium 144
Potassium
Chloride 113 H
Carbon Dioxide 23
BUN 32 H
Creatinine 0.8
Glucose 103 H
Calcium 8.4
Vital Signs:
Vital Signs
Temp Pulse Resp BP Pulse Ox
97.9 F 60 12 95/58 98
12/17/24 07:40 12/17/24 09:46 12/17/24 09:46 12/17/24 09:46 12/17/24 09:46
I&O
12/16/24 12/17/24 12/18/24
06:59 06:59 06:59
Intake Total 2600 / 2600
Balance 2600 / 2600
[2024-12-17] MEDS: LR IV ×2 (20:53→21:42)
[2024-12-17] MEDS: SENOKOT PO (21:32)
[2024-12-18] VITALS (25 sets, daily range): BP systolic 92–139; BP diastolic 56–101; PULSE 57; O2SAT 98; BMI 18.9
--- NOTE | 2024-12-18 03:08 | PTCARENOTE ---
Patient lethargic but arousable. Pt remains drowsy. Levophed gtt cont, currently at 2mcg/min, will continue to wean while maintaining MAP >65. IVF cont. Reached out to SINA Palomares for an order for a speech consult, pt is also now NPO. Pt has a
frequent moist cough, garbled speech and is extremely lethargic, unable to take any medications orally. NSR to SB, prolonged QT, HR while sleeping in the 40's. SINA Palomares made aware, will continue to closely monitor. Reached out to VAT in regards to
possible need for central access for Levophed by AM. Condom cath #25 changed. Pt tolerating frequent turning and repositioning. Bed alarm on.
[2024-12-18 05:35] LABS: Hematocrit 29.3 % (39.0-52.0); Mean Corp Hgb Conc. 34.1 g/dL (33.0-37.0); Mean Corpuscular Hgb 29.6 pg (27.0-31.0); Mean Corpuscular Volume 86.7 fL (80.0-94.0); Mean Platelet Volume 10.7 fL (7.4-10.4); Platelet Count 150 10^3/uL (130-400); Red Blood Cell Count 3.38 10^6/uL (4.70-6.10); White Blood Cell Count 10.9 10^3/uL (4.8-10.8)
--- NOTE | 2024-12-18 06:18 | PTCARENOTE ---
SINA Palomares placed an order for PICC placement due to Levophed running peripherally for 24h. Pt currently on 1mcg/min. Will pass onto dayshift. Pt bradycardic HR 42. CULTURE MEDIA LABORATORY ASSISTANT made aware and will plan to wean off vasopressor as appropriate.
[2024-12-18] MEDS: COLACE PO (07:07)
[2024-12-18] MEDS: DESENEX/MITRAZOL/ZEASORB 1 APPLIC TOPICAL ×2 (07:07→19:38)
[2024-12-18] MEDS: ARICEPT PO (07:07)
[2024-12-18] MEDS: HEPARIN 5000 UNITS SC ×2 (07:08→19:54)
[2024-12-18] MEDS: LEXAPRO PO (07:08)
[2024-12-18] MEDS: ProAmatine PO ×2 (07:08→13:21)
[2024-12-18] MEDS: ROCEPHIN 1000 MG IV (07:08)
[2024-12-18] MEDS: RISPERDAL PO (07:08)
[2024-12-18] MEDS: MIRALAX PO (07:08)
[2024-12-18] MEDS: LR 1000 IV ×2 (07:09→17:25)
[2024-12-18] MEDS: STERILE WATER FOR INJECTION 10 ML IV (07:09)
--- NOTE | 2024-12-18 09:43 | W.PN.HOSP.TC ---
Today's Communication/Plan
-
see plan
Assessment / Plan
Assessment / Plan
84y M with PMH significant for dementia and COPD who presents to ED for evaluation of lethargy / altered mental status.
Gen: NAD, appears chronically ill
CV: troy, reg rhythm, +S1/S2, no m/r/g.
Resp: CTAB anteriorly, no rales, wheezes, or rhonchi.
Abd: +BS, soft, NT, ND
Skin: No rashes.
12/17/24 03:55 Nose MRSA Screen - Final
No Methicillin Resistant Staphylococcus aureus isolated.
12/16/24 21:35 Blood/Venous Blood Culture - Preliminary
No Growth in 24 hours- Final report to follow
12/16/24 21:35 Blood/Venous Blood Culture - Preliminary
No Growth in 24 hours- Final report to follow
12/16/24 21:36 Nasal Swab Influenza Types A & B (BARRETT) - Final
Negative for Influenza A & B, NAAT
Negative results must be combined with clinical observations
and patient history.
Nucleic Acid Amplification test (NAAT)performed on the
[employer] platform.
CXR: Diffuse bilateral coarse linear and reticular interstitial thickening is demonstrated, consistent with pulmonary fibrosis. No focal consolidation to indicate pneumonia. No pneumothorax or pleural effusion.
CT A/P: No renal, ureteral, or urinary bladder calculus. Findings suspicious for cystitis. Mild bilateral hydroureter without evidence of obstructive uropathy. Large solid fecal burden rectum which is moderately distended with minor wall thickening
and surrounding soft tissue stranding. Findings suspicious for possibility of stercoral proctitis. 2.6 cm infrarenal abdominal aortic aneurysm. COPD. Interstitial fibrotic changes. Moderate hiatal hernia.
Septic shock, SOTO, and acute metabolic encephalopathy due to acute UTI and acute stercoral colitis:
-presents with leukocytosis, lactic acidosis, abnormal UA and evidence of life threatening organ dysfunction in the form of SOTO
-cont IV Rocephin
-cont IVFs (lactic acidosis resolved)
-cont bowel regimen
-cont midodrine for chronic orthostatic hypotension
Levophed now weaned to off (may need to be restarted)
-leukocytosis improving
Sinus bradycardia:
-no offending meds
-check ECG
-on tele MA 0.15s
-check K/Mg STAT
Other problems:
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
COPD and pulm fibrosis: not on any COPD-related mediations. Saturating well on RA. Albuterol PRN.
FULL/Heparin
Anticipated Discharge: > 48 hours
Subjective/Interval History
-
Date of Service: December 18, 2024
Pt sleeping.
Objective Data
-
Labs:
Laboratory Results
12/18/24
04:45
WBC 10.9 H
Hgb 10.0 L
Hct 29.3 L
Plt Count 150
Vital Signs:
Vital Signs
Temp Pulse Resp BP Pulse Ox
97.8 F 46 12 101/67 95
12/18/24 07:19 12/18/24 08:30 12/18/24 08:30 12/18/24 08:00 12/18/24 08:30
I&O
12/17/24 12/18/24 12/19/24
06:59 06:59 06:59
Intake Total 2600 / 2600 1100 / 1100
Output Total 550 / 550
Balance 2600 / 2600 550 / 550
[2024-12-18 11:53] LABS: Blood Urea Nitrogen 28 mg/dl (9-20); Calcium 8.5 mg/dl (8.4-10.2); Carbon Dioxide 23 mmol/L (22-30); Chloride 112 mmol/L (98-107); Estimated Creatinine Clearance 79 ml/min; Glucose 79 mg/dl (70-99); Magnesium 1.9 mg/dl (1.6-2.3); Potassium 3.7 mmol/L (3.5-5.1); Sodium 142 mmol/L (135-145); eGFR > 60.00
--- NOTE | 2024-12-18 12:04 | PTCARENOTE ---
patient noticed to have periods of bradycardia with HR going ranging 38-50s when sleeping. wakes up to voice. no c/o offered. confused at baseline. MD notified. orders for EKG, CMP and Mag noted and completed.
--- NOTE | 2024-12-18 12:23 | PTOTSP ---
Speech Pathology
Clinical Swallow Evaluation
84M with admission for sepsis, UTI, and stercoral colitis p/w s/s concerning for oropharyngeal dysphagia, acute on chronic, characterized by oral residue with soft solids and known history of silent aspiration w/ thin liquids per VSE from 05/17/24.
Aspiration risk is increased 2/2 known hx of silent aspiration w/ thin liquids; moderate hiatal hernia; changes in MS; lethargy; and hx of dementia and COPD.
OP VSE on 05/17/24: Pharyngeal > oral dysphagia; delay in swallow onset and laryngeal vestibule closure; silent aspiration with thin liquid by cup; BOT and pharyngeal weakness; reduced PES opening resulting in pharyngeal stasis; Recommendations for
NTL and chopped/moist solids with WEEKEND RECEPTIONIST follow up.
Recommend:
1. Minced and Moist Solids (IDDSI 5), Mildly thick liquids (IDDSI 2)
2. Meds one at a time w/ mildly thick liquid wash or whole in puree vs crushed in puree
3. Safe swallowing strategies: upright while eating and drinking; chin tuck; dry swallows; small single sips; no straws; small bites; slow rate; chew well
4. WEEKEND RECEPTIONIST service to continue to follow re: to assess diet level tolerance and provide dysphagia tx at the acute level PRN
[2024-12-18] MEDS: ProAmatine 5 MG PO (17:25)
--- NOTE | 2024-12-18 17:32 | VATNOTE ---
PICC order noted for vasopressor infusion. PCN states Levophed off around 1000 this morning. Will hold PICC placement at this time.
[2024-12-18] MEDS: SENOKOT 17.2 MG PO (19:53)
[2024-12-18] MEDS: COLACE 100 MG PO (19:53)
[2024-12-18] MEDS: RISPERDAL 0.5 MG PO (19:54)
--- NOTE | 2024-12-18 21:57 | PTCARENOTE ---
Catrachito has been calling out for 'Ruby'. He is confused but able to state his and answer simple yes/no questions. Restless, taking off covers and pillows. He is turning/moving himself in bed. NSR on tele. LR @ 100cc/hr in PIV. Levo has been off
since 10AM; BP WNL. He was able to feed himself dinner. Swallowed pills w/ applesauce w/o issues. CHG done. condom cath was replaced as pt pulled off. Bed alarm set for safety. Call lee within reach; pt reminded how to use CB for assistance.
[2024-12-19] VITALS (11 sets, daily range): BP systolic 110–154; BP diastolic 66–104; BMI 19.8
[2024-12-19] MEDS: REMERON 7.5 MG PO ×2 (01:04→20:19)
--- NOTE | 2024-12-19 01:25 | PTCARENOTE ---
Patient continues to yell out for help. Pt confused, unable to be re-oriented. Pt appears scared and anxious. SINA Palomares made aware. Re-ordered home dose of PO Remeron for now. Pt able to swallow with applesauce.
Bladder scan 183cc. Warm blanket provided. Reassurance and emotional support provided.
Bed alarm set. Call lee within reach. RN sitting outside closest nursing station. Rounding hourly.
[2024-12-19] MEDS: LR 1000 IV ×2 (03:24→14:28)
[2024-12-19 05:48] LABS: Blood Urea Nitrogen 22 mg/dl (9-20); Calcium 8.2 mg/dl (8.4-10.2); Carbon Dioxide 23 mmol/L (22-30); Chloride 110 mmol/L (98-107); Estimated Creatinine Clearance 96 ml/min; Glucose 89 mg/dl (70-99); Potassium 3.3 mmol/L (3.5-5.1); Sodium 137 mmol/L (135-145); eGFR > 60.00
[2024-12-19] MEDS: MIRALAX 17 GRAMS PO (07:54)
[2024-12-19] MEDS: HEPARIN 5000 UNITS SC ×2 (07:54→20:19)
[2024-12-19] MEDS: COLACE 100 MG PO ×2 (07:55→20:19)
[2024-12-19] MEDS: STERILE WATER FOR INJECTION 10 ML IV (07:55)
[2024-12-19] MEDS: LEXAPRO 20 MG PO (07:55)
[2024-12-19] MEDS: ROCEPHIN 1000 MG IV (07:55)
[2024-12-19] MEDS: DESENEX/MITRAZOL/ZEASORB 1 APPLIC TOPICAL ×2 (07:55→20:26)
[2024-12-19] MEDS: RISPERDAL 0.5 MG PO ×2 (07:55→20:19)
[2024-12-19] MEDS: ARICEPT 10 MG PO (07:55)
[2024-12-19] MEDS: ProAmatine 5 MG PO ×2 (07:55→12:05)
--- NOTE | 2024-12-19 08:23 | PTCARENOTE ---
Pt extremely agitated and attempting to climb OOB. Multiple attempts to reorient and redirect pt unsuccessful. Dr. Blanco notified, order received for restraints- see intervention.
--- NOTE | 2024-12-19 10:43 | W.PN.HOSP.TC ---
Today's Communication/Plan
-
see plan
Assessment / Plan
Assessment / Plan
84y M with PMH significant for dementia and COPD who presents to ED for evaluation of lethargy / altered mental status.
Gen: NAD, appears chronically ill, awake and alert
Eyes: EOMI/PERRLA, no scleral icterus
CV: RRR, +S1/S2, no m/r/g.
Resp: CTAB anteriorly, no rales, wheezes, or rhonchi.
Abd: +BS, soft, NT, ND
Neuro: CN 2-12 intact
Skin: No rashes.
12/16/24 21:36 Urine Urine Culture - Final
Escherichia coli
12/16/24 21:35 Blood/Venous Blood Culture - Preliminary
No Growth in 48 hours- Final report to follow
12/16/24 21:35 Blood/Venous Blood Culture - Preliminary
No Growth in 48 hours- Final report to follow
12/17/24 03:55 Nose MRSA Screen - Final
No Methicillin Resistant Staphylococcus aureus isolated.
12/16/24 21:36 Nasal Swab Influenza Types A & B (BARRETT) - Final
Negative for Influenza A & B, NAAT
Negative results must be combined with clinical observations
and patient history.
Nucleic Acid Amplification test (NAAT)performed on the
[employer] platform.
CXR: Diffuse bilateral coarse linear and reticular interstitial thickening is demonstrated, consistent with pulmonary fibrosis. No focal consolidation to indicate pneumonia. No pneumothorax or pleural effusion.
CT A/P: No renal, ureteral, or urinary bladder calculus. Findings suspicious for cystitis. Mild bilateral hydroureter without evidence of obstructive uropathy. Large solid fecal burden rectum which is moderately distended with minor wall thickening
and surrounding soft tissue stranding. Findings suspicious for possibility of stercoral proctitis. 2.6 cm infrarenal abdominal aortic aneurysm. COPD. Interstitial fibrotic changes. Moderate hiatal hernia.
Septic shock, SOTO, and acute metabolic encephalopathy due to acute UTI and acute stercoral colitis:
-presents with leukocytosis, lactic acidosis, abnormal UA and evidence of life threatening organ dysfunction in the form of SOTO
-cont IV Rocephin
-cont IVFs (lactic acidosis resolved)
-cont bowel regimen
-cont midodrine for chronic orthostatic hypotension
-Levophed now weaned to off
-leukocytosis resolved
Other problems:
Sinus bradycardia, resolved
Hypokalemia: 40meq K ot
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
COPD and pulm fibrosis: not on any COPD-related mediations. Saturating well on RA. Albuterol PRN.
FULL/Heparin
Anticipated Discharge: Within 24 hours
Subjective/Interval History
-
Date of Service: December 19, 2024
Patient with dementia.
Objective Data
-
Labs:
Laboratory Results
12/19/24
04:48
Sodium 137
Potassium 3.3 L
Chloride 110 H
Carbon Dioxide 23
BUN 22 H
Creatinine 0.6 L
Glucose 89
Calcium 8.2 L
Vital Signs:
Vital Signs
Temp Pulse Resp BP Pulse Ox
98.0 F 78 28 119/83 97
12/19/24 07:25 12/19/24 10:30 12/19/24 10:30 12/19/24 10:00 12/19/24 10:30
I&O
12/18/24 12/19/24 12/20/24
06:59 06:59 06:59
Intake Total 1100 / 1100 1047 / 1047
Output Total 550 / 550 550 / 550
Balance 550 / 550 497 / 497
[2024-12-19 11:16] LABS: Hematocrit 30.9 % (39.0-52.0); Hemoglobin 10.5 g/dL (13.0-18.0); Mean Corpuscular Hgb 29.2 pg (27.0-31.0); Mean Corpuscular Volume 85.8 fL (80.0-94.0); Mean Platelet Volume 10.8 fL (7.4-10.4); Platelet Count 160 10^3/uL (130-400); Red Cell Dist. Width 13.3 % (11.5-14.5); White Blood Cell Count 6.1 10^3/uL (4.8-10.8)
[2024-12-19 11:30] LABS: Blood Urea Nitrogen 19 mg/dl (9-20); Calcium 8.1 mg/dl (8.4-10.2); Carbon Dioxide 23 mmol/L (22-30); Chloride 109 mmol/L (98-107); Estimated Creatinine Clearance 96 ml/min; Glucose 96 mg/dl (70-99); Potassium 3.5 mmol/L (3.5-5.1); Sodium 138 mmol/L (135-145); eGFR > 60.00
[2024-12-19] MEDS: KCL 270 MEQ IV (12:04)
[2024-12-19] MEDS: ProAmatine PO (17:21)
--- NOTE | 2024-12-19 18:43 | PTCARENOTE ---
Pt downgraded to med surg. Report to receiving RN. Belongings collected from room. Transferred to 320 via stretcher.
[2024-12-19] MEDS: SENOKOT 17.2 MG PO (20:19)
[2024-12-19] MEDS: VENTOLIN NEBULES 2.5 MG INH (23:36)
--- NOTE | 2024-12-19 23:52 | W.PN.UPDATE ---
Update Note
Progress Note Update
-Patient is dyspneic. Afebrile, bp 126/66, Hr 61. Patient spo2 initially 94% on RA and then desatted to 98%. Crackle lung sounds by the nursing staff prior to neb treatment.
On exam,
Patient just finished duo neb treatment, noted that he is a mouth breather. No wheezing or crackle lung sound noted. Patient is feeling better after the nebs and denies sob.
-Repeated covid is Neg, abg ordered and result noted. Chest x-ray result is pending.
[2024-12-20 00:06] LABS: B.E. -1.7 mmol/L; HCO3 21.3 mmol/L (21-28); O2 Saturation % 98.4 % (94-98); PCO2 30 mmHg (35-48); PO2 93 mmHg (83-108); pH 7.46 (7.35-7.45)
[2024-12-20 00:27] LABS: COVID-19 Antigen Negative (Negative)
--- NOTE | 2024-12-20 01:44 | PTCARENOTE ---
At 22:55 pt lung sounds coarse in bilateral bases with increase coughing and dyspnea at rest. LR running at 100ml/hr. BP 126/66, Hr 61 94% on room air. RN MANAGER notified, instructed to call respiratory for neb treatment.
Rn came back in room to assess Pt and Pt at 89% on room air, and crackles audible at bedside with increased SOB. RT in room to administer neb treatment and RN MANAGER on floor to assess Pt. Pt placed on 2L, 96% after treatment and dyspnea subsided per Pt.
ABG, covid swab, chest xray ordered. No intervention for abg, covid negative. Instructed to decrease fluids to 80ml/hr. RN MANAGER stated will enter order. Call lee within reach, and plan of care ongoing.
[2024-12-20] MEDS: LR 1000 IV (02:23)
[2024-12-20 06:00] VITALS: BMI 19.2
[2024-12-20 07:05] VITALS: BP 126/62
[2024-12-20] MEDS: COLACE 100 MG PO ×2 (08:06→21:15)
[2024-12-20] MEDS: RISPERDAL 0.5 MG PO ×2 (08:06→21:15)
[2024-12-20] MEDS: LEXAPRO 20 MG PO (08:06)
[2024-12-20] MEDS: ProAmatine 5 MG PO ×3 (08:06→17:06)
[2024-12-20] MEDS: MIRALAX 17 GRAMS PO (08:06)
[2024-12-20] MEDS: DESENEX/MITRAZOL/ZEASORB 1 APPLIC TOPICAL ×2 (08:06→21:15)
[2024-12-20] MEDS: ARICEPT 10 MG PO (08:06)
[2024-12-20] MEDS: ROCEPHIN 1000 MG IV (08:07)
[2024-12-20] MEDS: HEPARIN 5000 UNITS SC ×2 (08:07→21:14)
[2024-12-20] MEDS: STERILE WATER FOR INJECTION 10 ML IV (08:08)
[2024-12-20 08:31] LABS: Hematocrit 30.6 % (39.0-52.0); Hemoglobin 10.6 g/dL (13.0-18.0); Mean Corp Hgb Conc. 34.6 g/dL (33.0-37.0); Mean Corpuscular Hgb 28.8 pg (27.0-31.0); Mean Corpuscular Volume 83.2 fL (80.0-94.0); Mean Platelet Volume 10.4 fL (7.4-10.4); Platelet Count 151 10^3/uL (130-400); Red Blood Cell Count 3.68 10^6/uL (4.70-6.10); Red Cell Dist. Width 13.2 % (11.5-14.5); White Blood Cell Count 5.7 10^3/uL (4.8-10.8)
--- NOTE | 2024-12-20 08:58 | W.PN.HOSP.TC ---
Addendum entered and electronically signed by Gillian Ray MD 12/20/24 15:38:
addendum
d/w daughter at bed side, ok to do rectal exam / disimpaction
we did, rectum is empty with loose brown stool, no hard stools. Per daughter, ER did enema and had BM
c/w laxative
- 'Stage 1 middle back pressure injury, POA.'
End
Original Note:
Today's Communication/Plan
-
c/w laxatives
c/w Rocephin
Poor oral intake, will give IVF
Assessment / Plan
Assessment / Plan
84y M with PMH significant for dementia and COPD who presents to ED for evaluation of lethargy / altered mental status.
Physical exam:
Gen: NAD, appears chronically ill, awake and alert
Eyes: EOMI/PERRLA, no scleral icterus
CV: RRR, +S1/S2, no m/r/g.
Resp: b/l rales.
Abd: +BS, soft, NT, ND
Neuro: awake, followed simple commands,
Skin: No rashes.
Psych: calm
Septic shock, SOTO, and acute metabolic encephalopathy due to acute UTI and acute stercoral colitis:
-presented with leukocytosis, lactic acidosis, abnormal UA and evidence of life threatening organ dysfunction in the form of SOTO
-cont IV Rocephin. Urine culture is styles sensitive E Coli
-s/p IVFs (lactic acidosis resolved). WBC normal now
-cont midodrine for chronic orthostatic hypotension
-Levophed off
-leukocytosis resolved
# CT showed stercoral proctitis.
Now on MiraLAX, Colace & Senna
Poor oral intake with no enough fluid,w ill give mild IVF
Pt was agitated and refused to have rectal disimpaction but he has dementia, will c/w current oral Laxatives. Abdomen is soft and not distended or tender. Will re-visit if no BM.
# Acute COPD exacerbation
Hypoxia only
Positive rhonchi/ rales
CXR 12/19 showed Stable radiographic appearance from December 16, 2024. Radiographic pattern highly suggestive of diffuse interstitial fibrosis.
Will do Neb TID and give short course of IV Steroid
# Sinus bradycardia, resolved
# Hypokalemia: 40meq K
# Senile Dementia with Behavioral Disturbance: cont Aricept, Lexapro, Remeron.
FULL/Heparin
Total time spent to see the patient, examine the patient, review data and lab result, discuss treatment plan with patient, nursing staff around 55 minutes
Anticipated Discharge: 24 - 48 hours
Subjective/Interval History
-
Date of Service: December 20, 2024
Noted sob over the night
He denies chest pain/ sob
Objective Data
-
Labs:
Laboratory Results
12/20/24 12/20/24
00:00 07:52
WBC 5.7
Hgb 10.6 L
Hct 30.6 L
Plt Count 151
HCO3 21.3
Sodium Pending
Potassium Pending
Chloride Pending
Carbon Dioxide Pending
BUN Pending
Creatinine Pending
Glucose Pending
Calcium Pending
Vital Signs:
Vital Signs
Temp Pulse Resp BP Pulse Ox
97.4 F 53 17 126/62 97
12/20/24 07:05 12/20/24 08:06 12/20/24 07:05 12/20/24 08:06 12/20/24 07:05
I&O
12/19/24 12/20/24 12/21/24
06:59 06:59 06:59
Intake Total 1047 / 1047 800 / 800
Output Total 550 / 550
Balance 497 / 497 800 / 800
[2024-12-20 09:11] LABS: Blood Urea Nitrogen 11 mg/dl (9-20); Calcium 8.3 mg/dl (8.4-10.2); Carbon Dioxide 23 mmol/L (22-30); Chloride 110 mmol/L (98-107); Estimated Creatinine Clearance 93 ml/min; Glucose 70 mg/dl (70-99); Potassium 3.8 mmol/L (3.5-5.1); Sodium 140 mmol/L (135-145); eGFR > 60.00
[2024-12-20] MEDS: SOLU-MEDROL PF 40 MG IV (09:24)
[2024-12-20] MEDS: NSS 1000 IV (13:50)
[2024-12-20 15:05] VITALS: BP 113/60
--- NOTE | 2024-12-20 15:21 | CM ---
patient seen at bedside with daughter Wendy
IV abx, IVF
Patient resides at [facility] unit
PT rec return to [place] vs. SNF
PLAN: [place] vs. SNF
--- NOTE | 2024-12-20 15:22 | PN.CDI ---
CDI
- -
CDI:
Physician Documentation Request
Admit Date: 12/17/24 01:40
Dear Doctor Cory,
Patient admitted with sepsis.
12/17 Nursing skin assessment, 'Stage 1 middle back pressure injury, POA.'
Physician documentation of the type and location of wounds is required for compliant documentation. Based on the above clinical findings and your assessment, please provide the following in your progress note:
Type (etiology) of ulcer/wound:
- Pressure (decubitus) ulcer
- Other
- Unable to determine
For a pressure ulcer, please also include the stage* of the ulcer:
- Stage 1 - Skin intact, non-blanchable redness
- Stage 2 - Partial thickness loss of dermis, includes intact or open blister
- Stage 3 - Full thickness tissue not including bone, tendon or muscle
- Stage 4 - Full thickness tissue loss, including exposed bone, tendon or muscle
- Unstageable - Full thickness loss in which the base of the ulcer is covered by slough (yellow, holloway, wright, green or brown) and/or eschar (holloway, brown or black) in the wound bed.
- Unable to determine
Use of terms such as suspected, likely, concern for, or probable (associated with a specific diagnosis that is being evaluated, monitored, or treated as if it exists) are acceptable and can be coded in the inpatient setting, when documented at the
time of discharge.
Thank you,
Lisha BERGER,RN,CCDS
CDI Specialist
Available via [place] text
Please use your independent medical judgment in providing your response.
*Source: National Pressure Ulcer Advisory Panel (NPUAP)
[2024-12-20] MEDS: SENOKOT 17.2 MG PO (21:15)
[2024-12-20] MEDS: REMERON 7.5 MG PO (21:15)
[2024-12-20 23:03] VITALS: BP 134/75
[2024-12-21] MEDS: NSS 1000 IV ×2 (02:39→15:07)
[2024-12-21 06:00] VITALS: BMI 19.1
[2024-12-21 07:32] VITALS: BP 115/61
[2024-12-21 07:35] LABS: Blood Urea Nitrogen 14 mg/dl (9-20); Calcium 8.1 mg/dl (8.4-10.2); Carbon Dioxide 25 mmol/L (22-30); Chloride 109 mmol/L (98-107); Estimated Creatinine Clearance 93 ml/min; Glucose 77 mg/dl (70-99); Potassium 3.6 mmol/L (3.5-5.1); Sodium 140 mmol/L (135-145); eGFR > 60.00
[2024-12-21] MEDS: ProAmatine 5 MG PO ×3 (08:53→18:02)
[2024-12-21] MEDS: LEXAPRO 20 MG PO (08:54)
[2024-12-21] MEDS: ROCEPHIN 1000 MG IV (08:54)
[2024-12-21] MEDS: ARICEPT 10 MG PO (08:54)
[2024-12-21] MEDS: COLACE 100 MG PO ×2 (08:54→22:35)
[2024-12-21] MEDS: DESENEX/MITRAZOL/ZEASORB 1 APPLIC TOPICAL ×2 (08:54→22:36)
[2024-12-21] MEDS: RISPERDAL 0.5 MG PO ×2 (08:54→22:35)
[2024-12-21] MEDS: SOLU-MEDROL PF 40 MG IV (08:54)
[2024-12-21] MEDS: MIRALAX 17 GRAMS PO (08:54)
[2024-12-21] MEDS: HEPARIN 5000 UNITS SC ×2 (08:55→22:35)
[2024-12-21] MEDS: STERILE WATER FOR INJECTION 10 ML IV (08:55)
[2024-12-21 10:48] VITALS: BMI 19.1
--- NOTE | 2024-12-21 11:47 | W.PN.HOSP.TC ---
Today's Communication/Plan
-
PT/speech
d/c planning
likely will need SNF
Assessment / Plan
Assessment / Plan
pt is an 84 year old female
Septic shock, SOTO, and acute metabolic encephalopathy due to acute UTI and acute stercoral colitis--cultures reviewed--cont rocephin--Urine culture is styles sensitive E Coli--s/p IVFs (lactic acidosis resolved). WBC normal now--cont midodrine for
chronic orthostatic hypotension
CT showed stercoral proctitis--Now on MiraLAX, Colace & Senna--Poor oral intake with no enough fluid, will give mild IVF
Acute COPD exacerbation--Hypoxia only--CXR 12/19 showed Stable radiographic appearance from December 16, 2024. Radiographic pattern highly suggestive of diffuse interstitial fibrosis--Will do Neb TID and give short course of IV Steroid
Sinus bradycardia, resolved
Hypokalemia: 40meq K
Senile Dementia with Behavioral Disturbance: cont Aricept, Lexapro, Remeron
DVT proph
code status--full code
ordered PT/speech--will likely need SNF and not be able to return to [facility]
Anticipated Discharge: 24 - 48 hours
Subjective/Interval History
-
Date of Service: December 21, 2024
pt sleeping--did not wake
Objective Data
-
Labs:
Laboratory Results
12/21/24
06:30
Sodium 140
Potassium 3.6
Chloride 109 H
Carbon Dioxide 25
BUN 14
Creatinine 0.6 L
Glucose 77
Calcium 8.1 L
Vital Signs:
max temp for 24 hours
12/20/24
15:05
Temp 97.8 F
Vital Signs
Temp Pulse Resp BP Pulse Ox
97.5 F 58 16 115/61 97
12/21/24 07:32 12/21/24 08:53 12/21/24 07:32 12/21/24 08:53 12/21/24 10:48
I&O
12/20/24 12/21/24 12/22/24
06:59 06:59 06:59
Intake Total 800 / 800 740 / 740
Output Total 650 / 650
Balance 800 / 800 90 / 90
Review of Systems
-
Unable to obtain full review of systems at this time due to: Dementia (sleeping)
Physical Exam
-
General: Appears Chronically Ill
HEENT: Oxygen
Respiratory: Clear to Auscultation; Negative Wheezes or Rhonchi
Cardiac: Regular Rhythm and S1/S2; Negative Murmur
GI: Soft, Nontender, Nondistended and Normal Bowel Sounds
Musculoskeletal: No Clubbing, No Cyanosis and No Edema
Skin: Warm
Neuro: Negative Awake (sleeping)
Psych: Calm
--- NOTE | 2024-12-21 14:26 | CM ---
Patient chart reivewed
Patient resident of [facility]
Spoke with hospitalist
PT ordered
PLAN: pending PT eval
[2024-12-21 15:47] VITALS: BP 132/71
[2024-12-21] MEDS: REMERON 7.5 MG PO (22:35)
[2024-12-21] MEDS: SENOKOT 17.2 MG PO (22:35)
[2024-12-21 23:00] VITALS: BP 126/69
[2024-12-22 06:00] VITALS: BMI 19.3
[2024-12-22 07:18] LABS: Blood Urea Nitrogen 17 mg/dl (9-20); Calcium 8.3 mg/dl (8.4-10.2); Carbon Dioxide 26 mmol/L (22-30); Chloride 109 mmol/L (98-107); Estimated Creatinine Clearance 80 ml/min; Glucose 75 mg/dl (70-99); Potassium 4.1 mmol/L (3.5-5.1); Sodium 141 mmol/L (135-145); eGFR > 60.00
[2024-12-22 07:45] VITALS: BP 101/63
[2024-12-22] MEDS: COLACE 100 MG PO ×2 (09:08→20:31)
[2024-12-22] MEDS: MIRALAX 17 GRAMS PO (09:08)
[2024-12-22] MEDS: RISPERDAL 0.5 MG PO ×2 (09:09→20:31)
[2024-12-22] MEDS: ProAmatine 5 MG PO ×3 (09:09→16:14)
[2024-12-22] MEDS: STERILE WATER FOR INJECTION 10 ML IV (09:09)
[2024-12-22] MEDS: ROCEPHIN 1000 MG IV (09:10)
[2024-12-22] MEDS: HEPARIN 5000 UNITS SC ×2 (09:10→20:31)
[2024-12-22] MEDS: DESENEX/MITRAZOL/ZEASORB 1 APPLIC TOPICAL ×2 (10:10→20:31)
[2024-12-22] MEDS: LEXAPRO 20 MG PO (10:13)
[2024-12-22] MEDS: ARICEPT 10 MG PO (10:13)
[2024-12-22 11:25] VITALS: BP 99/52; PULSE 61; O2SAT 99
--- NOTE | 2024-12-22 11:33 | W.PN.HOSP.TC ---
Today's Communication/Plan
-
d/c planning
Assessment / Plan
Assessment / Plan
pt is an 84 year old female
Septic shock, SOTO, and acute metabolic encephalopathy due to acute UTI and acute stercoral colitis--cultures reviewed--change rocephin to PO keflex--Urine culture is styles sensitive E Coli--s/p IVFs (lactic acidosis resolved). WBC normal now--cont
midodrine for chronic orthostatic hypotension
CT showed stercoral proctitis--Now on MiraLAX, Colace & Senna--Poor oral intake with no enough fluid
Acute COPD exacerbation--Hypoxia only--CXR 12/19 showed Stable radiographic appearance from December 16, 2024. Radiographic pattern highly suggestive of diffuse interstitial fibrosis--off steroids
Sinus bradycardia, resolved
Hypokalemia--40meq K
Senile Dementia with Behavioral Disturbance-- cont Aricept, Lexapro, Remeron
DVT proph
code status--full code
ordered PT/speech--will likely need SNF and not be able to return to [facility]--medically ready for d/c
tried to call daughter--no answer
Anticipated Discharge: Today
Subjective/Interval History
-
Date of Service: December 22, 2024
pt awake and working with therapy
Objective Data
-
Labs:
Laboratory Results
12/22/24
06:18
Sodium 141
Potassium 4.1
Chloride 109 H
Carbon Dioxide 26
BUN 17
Creatinine 0.7
Glucose 75
Calcium 8.3 L
Vital Signs:
max temp for 24 hours
12/21/24
23:00
Temp 97.9 F
Vital Signs
Temp Pulse Resp BP Pulse Ox
96.7 F L 48 16 101/63 94
12/22/24 07:45 12/22/24 07:45 12/22/24 07:45 12/22/24 07:45 12/22/24 07:45
I&O
12/21/24 12/22/24 12/23/24
06:59 06:59 06:59
Intake Total 740 / 740 300 / 300
Output Total 650 / 650 1100 / 1100
Balance 90 / 90 -800 / -800
Review of Systems
-
Unable to obtain full review of systems at this time due to: Dementia
All other systems: Reviewed and negative
Physical Exam
-
General: Appears Chronically Ill and Cachectic
HEENT: Normocephalic and Atraumatic; Negative Oxygen
Respiratory: Clear to Auscultation; Negative Wheezes, Rales or Rhonchi
Cardiac: Regular Rhythm and S1/S2; Negative Murmur
GI: Soft, Nontender, Nondistended and Normal Bowel Sounds
Genito-urinary: Other (condom cath)
Musculoskeletal: No Clubbing, No Cyanosis and No Edema
Psych: Apparent Dementia
--- NOTE | 2024-12-22 11:55 | CM ---
Patient seen at bedside
spoke with hospitalist
CM left message with [facility] at [facility]
PT/OT rec SNF
Spoke with daughter Wendy regarding SNF options & medicare.gov care compare
She will get back to CM for which referrals to add in careport
PLAN: SNF, pending bed acceptance/availability, will need to obtain ins authorization
--- NOTE | 2024-12-22 11:56 | PTOTSP ---
Addendum entered and electronically signed by ST Qamar 12/22/24 11:59:
5. intermittent cued cough/swallow
Original Note:
Videofluorscopic swallow study
Mild-moderate oral, at least moderate pharyngeal dysphagia. See patient care note for details. Plan below is pending medical decision maker input/understanding of aspiration risks.
Recommend:
1. IDDSI Level 5 Minced/moist, Thin liquids via single cup sips (consider Provale cup)
2. Medications crushed in puree
3. Strategies: 1:1 supervision/assist, small sips/bites, slow rate, vigorous oral care before/after PO and 3x daily
4. Dysphagia f/u for education
[2024-12-22 12:32] VITALS: BP 99/52
[2024-12-22 14:47] VITALS: BP 127/70
[2024-12-22] MEDS: SENOKOT 17.2 MG PO (20:31)
[2024-12-22] MEDS: REMERON 7.5 MG PO (20:31)
[2024-12-22] MEDS: KEFLEX 500 MG PO (20:31)
[2024-12-22 22:53] VITALS: BP 134/80
[2024-12-23 06:00] VITALS: BMI 19.0
[2024-12-23 07:05] VITALS: BP 118/60
[2024-12-23] MEDS: RISPERDAL 0.5 MG PO ×2 (08:26→19:53)
[2024-12-23] MEDS: KEFLEX 500 MG PO ×2 (08:26→19:53)
[2024-12-23] MEDS: ARICEPT 10 MG PO (08:26)
[2024-12-23] MEDS: LEXAPRO 20 MG PO (08:26)
[2024-12-23] MEDS: ProAmatine 5 MG PO ×3 (08:26→17:05)
[2024-12-23] MEDS: COLACE 100 MG PO ×2 (08:26→19:52)
[2024-12-23 08:27] LABS: Blood Urea Nitrogen 15 mg/dl (9-20); Calcium 8.3 mg/dl (8.4-10.2); Carbon Dioxide 27 mmol/L (22-30); Chloride 107 mmol/L (98-107); Estimated Creatinine Clearance 80 ml/min; Glucose 79 mg/dl (70-99); Potassium 3.5 mmol/L (3.5-5.1); Sodium 140 mmol/L (135-145); eGFR > 60.00
[2024-12-23] MEDS: DESENEX/MITRAZOL/ZEASORB 1 APPLIC TOPICAL ×2 (08:27→19:53)
[2024-12-23] MEDS: MIRALAX 17 GRAMS PO (08:27)
[2024-12-23] MEDS: HEPARIN 5000 UNITS SC ×2 (08:27→19:53)
--- NOTE | 2024-12-23 10:55 | W.PN.HOSP.TC ---
Today's Communication/Plan
-
see A/P
Assessment / Plan
Assessment / Plan
A/P:
# Septic shock with acute metabolic encephalopathy due to complicated UTI in a male and acute stercoral colitis
Cultures reviewed
changed Rocephin to PO keflex
s/p IVFs (lactic acidosis resolved, WBC normalized, SOTO resolved)
cont midodrine for chronic orthostatic hypotension
Check bladder scan
Of note, CT AP noted No renal or ureteral calculus, mild distention of both ureters, Nonspecific mild bilateral perinephric soft tissue stranding.
# CT showed stercoral proctitis
Now on MiraLAX, Colace & Senna
Poor oral intake with no enough fluid
# Acute COPD exacerbation
CXR 12/19 showed Stable radiographic appearance from 12/16/2024. Radiographic pattern highly suggestive of diffuse interstitial fibrosis
off steroids
# Sinus bradycardia, resolved
# Hypokalemia
Replete PRN
# Senile Dementia with Behavioral Disturbance
cont Aricept, Lexapro, Remeron
DVT proph: HSQ
code status-: Full code
Dispo: SNF, pending bed acceptance/availability
DW CM
Anticipated Discharge: Within 24 hours
Subjective/Interval History
-
Date of Service: December 23, 2024
Objective Data
-
Labs:
Laboratory Results
12/23/24
06:58
Sodium 140
Potassium 3.5
Chloride 107
Carbon Dioxide 27
BUN 15
Creatinine 0.7
Glucose 79
Calcium 8.3 L
Vital Signs:
Vital Signs
Temp Pulse Resp BP Pulse Ox
36.4 C 60 17 118/60 97
12/23/24 07:05 12/23/24 08:26 12/23/24 07:05 12/23/24 08:26 12/23/24 07:05
I&O
12/22/24 12/23/24 12/24/24
06:59 06:59 06:59
Intake Total 300 / 300 480 / 480
Output Total 1100 / 1100 2149 / 215
Balance -800 / -800 -1670 / -1670
Review of Systems
-
Unable to obtain full review of systems at this time due to: Dementia
Physical Exam
-
General: Well Developed, Well Nourished, Comfortable, Appears Chronically Ill and Cachectic
HEENT: Normocephalic and Atraumatic; Negative Oxygen
Respiratory: Clear to Auscultation and Non Labored Respirations; Negative Accessory Resp Muscle Use
Cardiac: Regular Rhythm and S1/S2; Negative Murmur
GI: Soft, Nontender, Nondistended and Normal Bowel Sounds
Musculoskeletal: No Clubbing, No Cyanosis and No Edema
Neuro: Awake; Negative AO x 3
Psych: Calm and Apparent Dementia
Data Reviewed
-
Labs: Labs Reviewed by me
[2024-12-23 11:25] LABS: Magnesium 1.9 mg/dl (1.6-2.3)
[2024-12-23] MEDS: KCL 270 MEQ IV (12:22)
[2024-12-23 14:55] VITALS: BP 116/69
--- NOTE | 2024-12-23 16:04 | CM ---
Chart reviewed and patient will need skilled placement, showcase maker reached out to patient's daughter and she has selected [facility], [facility] and [facility], referrals sent through [facility].
Plan; Skilled placement, referrals sent to [facility], [facility], and [facility].
[2024-12-23] MEDS: SENOKOT 17.2 MG PO (21:05)
[2024-12-23] MEDS: REMERON 7.5 MG PO (21:05)
[2024-12-23 23:39] VITALS: BP 136/88
--- NOTE | 2024-12-23 23:40 | PTCARENOTE ---
Pt found having audible coarse lung sounds, weak efforts to cough, SOB, dyspnea at rest. Pts temp 97.8, HR 96, BP 136/88, RR 18, O2 93% RA. SINA Nguyen notified of pt status @ 2321. New order in for duoneb @ 2350. Resp then notified. Resp at
bedside to assess pt. Pt given duoneb tx, then put on 4L NC @ 94% by resp. Lung sounds improved. Plan of care ongoing.
[2024-12-23] MEDS: DUONEB 3 ML INH (23:59)
[2024-12-24] MEDS: DUONEB 3 ML INH ×3 (03:14→11:17)
[2024-12-24 06:37] VITALS: BMI 18.9
[2024-12-24 07:00] VITALS: BP 101/58
[2024-12-24] MEDS: RISPERDAL 0.5 MG PO ×2 (10:02→21:03)
[2024-12-24] MEDS: ARICEPT 10 MG PO (10:02)
[2024-12-24] MEDS: ProAmatine 5 MG PO ×3 (10:02→16:44)
[2024-12-24] MEDS: KEFLEX 500 MG PO ×2 (10:02→21:03)
[2024-12-24] MEDS: COLACE 100 MG PO ×2 (10:02→21:03)
[2024-12-24] MEDS: MIRALAX 17 GRAMS PO (10:02)
[2024-12-24] MEDS: HEPARIN 5000 UNITS SC ×2 (10:03→21:04)
[2024-12-24] MEDS: LEXAPRO 20 MG PO (10:03)
[2024-12-24] MEDS: DESENEX/MITRAZOL/ZEASORB 1 APPLIC TOPICAL ×2 (10:05→21:04)
[2024-12-24 10:53] LABS: Blood Urea Nitrogen 14 mg/dl (9-20); Calcium 8.6 mg/dl (8.4-10.2); Carbon Dioxide 24 mmol/L (22-30); Chloride 107 mmol/L (98-107); Estimated Creatinine Clearance 92 ml/min; Glucose 74 mg/dl (70-99); Potassium 3.9 mmol/L (3.5-5.1); Sodium 139 mmol/L (135-145); eGFR > 60.00
[2024-12-24 11:04] VITALS: BP 88/45; PULSE 54
--- NOTE | 2024-12-24 12:37 | W.PN.HOSP.TC ---
Today's Communication/Plan
-
see A/P
Disposition planning
Assessment / Plan
Assessment / Plan
A/P:
# Septic shock with acute metabolic encephalopathy due to complicated UTI in a male and acute stercoral colitis
Cultures reviewed
changed Rocephin to PO keflex
s/p IVFs (lactic acidosis resolved, WBC normalized, SOTO resolved)
cont midodrine for chronic orthostatic hypotension
Check bladder scan if able
Of note, CT AP noted No renal or ureteral calculus, mild distention of both ureters, Nonspecific mild bilateral perinephric soft tissue stranding.
# CT showed stercoral proctitis
Now on MiraLAX, Colace & Senna
Poor oral intake with no enough fluid
# Acute COPD exacerbation
CXR 12/19 showed Stable radiographic appearance from 12/16/2024. Radiographic pattern highly suggestive of diffuse interstitial fibrosis
off steroids
# Acute hypoxic resp insufficiency , resolved
Pt was placed on 4L NC, weaned back to RA
CXR noted increased reticulonodular markings involving both lungs, pattern highly suggestive of interstitial fibrosis.
No evidence for new lung parenchymal opacity when comparing to recent radiographs. No evidence for significant pleural effusion bilaterally.
# Sinus bradycardia, resolved
# Hypokalemia
Replete PRN
# Senile Dementia with Behavioral Disturbance
cont Aricept, Lexapro, Remeron
DVT proph: HSQ
code status-: Full code
Dispo: SNF, pending bed acceptance/availability
DW RN
Anticipated Discharge: 24 - 48 hours
Subjective/Interval History
-
Date of Service: December 24, 2024
Objective Data
-
Labs:
Laboratory Results
12/24/24
06:54
Sodium 139
Potassium 3.9
Chloride 107
Carbon Dioxide 24
BUN 14
Creatinine 0.6 L
Glucose 74
Calcium 8.6
Vital Signs:
Vital Signs
Temp Pulse Resp BP Pulse Ox
36.2 C 62 18 88/45 98
12/24/24 07:00 12/24/24 07:59 12/24/24 07:59 12/24/24 11:28 12/24/24 09:05
I&O
12/23/24 12/24/24 12/25/24
06:59 06:59 06:59
Intake Total 480 / 480 960 / 960
Output Total 2150 / 2150
Balance -1670 / -1670 960 / 960
Review of Systems
-
Unable to obtain full review of systems at this time due to: Dementia
Physical Exam
-
General: Well Developed, Well Nourished, Comfortable, Appears Chronically Ill and Cachectic
HEENT: Normocephalic and Atraumatic; Negative Oxygen
Respiratory: Clear to Auscultation and Non Labored Respirations; Negative Accessory Resp Muscle Use
Cardiac: Regular Rhythm and S1/S2; Negative Murmur
GI: Soft, Nontender, Nondistended and Normal Bowel Sounds
Musculoskeletal: No Clubbing, No Cyanosis and No Edema
Neuro: Awake; Negative AO x 3
Psych: Calm and Apparent Dementia
Data Reviewed
-
Labs: Labs Reviewed by me
[2024-12-24 15:00] VITALS: BP 128/62
[2024-12-24] MEDS: DUONEB INH (15:25)
[2024-12-24] MEDS: SENOKOT 17.2 MG PO (21:03)
[2024-12-24] MEDS: REMERON 7.5 MG PO (21:03)
[2024-12-24 23:27] VITALS: BP 142/71
[2024-12-25 06:00] VITALS: BMI 18.5
[2024-12-25] MEDS: LEXAPRO 20 MG PO (07:23)
[2024-12-25] MEDS: ARICEPT 10 MG PO (07:23)
[2024-12-25] MEDS: RISPERDAL 0.5 MG PO ×2 (07:24→19:07)
[2024-12-25] MEDS: ProAmatine 5 MG PO ×3 (07:24→16:29)
[2024-12-25] MEDS: COLACE 100 MG PO (07:24)
[2024-12-25] MEDS: DESENEX/MITRAZOL/ZEASORB 1 APPLIC TOPICAL ×2 (07:24→19:06)
[2024-12-25] MEDS: KEFLEX 500 MG PO ×2 (07:24→19:07)
[2024-12-25] MEDS: MIRALAX 17 GRAMS PO (07:24)
[2024-12-25] MEDS: HEPARIN 5000 UNITS SC ×2 (07:26→19:06)
[2024-12-25 07:52] VITALS: BP 98/57
--- NOTE | 2024-12-25 12:08 | W.PN.HOSP.TC ---
Today's Communication/Plan
-
see A/P
Assessment / Plan
Assessment / Plan
A/P:
# Septic shock with acute metabolic encephalopathy due to complicated UTI in a male and acute stercoral colitis
Cultures reviewed
changed Rocephin to PO keflex
s/p IVFs (lactic acidosis resolved, WBC normalized, SOTO resolved)
cont midodrine for chronic orthostatic hypotension
Check bladder scan if able
Of note, CT AP noted No renal or ureteral calculus, mild distention of both ureters, Nonspecific mild bilateral perinephric soft tissue stranding.
# CT showed stercoral proctitis
cont MiraLAX, Senokot-S BID
Dulcolax ID [id number]
# Acute COPD exacerbation
CXR 12/19 showed Stable radiographic appearance from 12/16/2024. Radiographic pattern highly suggestive of diffuse interstitial fibrosis
off steroids
# Acute hypoxic resp insufficiency , resolved
Pt was placed on 4L NC, weaned back to RA
CXR noted increased reticulonodular markings involving both lungs, pattern highly suggestive of interstitial fibrosis.
No evidence for new lung parenchymal opacity when comparing to recent radiographs. No evidence for significant pleural effusion bilaterally.
# Sinus bradycardia, resolved
# Hypokalemia
Replete PRN
# Senile Dementia with Behavioral Disturbance
cont Aricept, Lexapro, Remeron
DVT proph: HSQ
code status-: Full code
Dispo: SNF, pending bed acceptance/availability
DW RN
Anticipated Discharge: 24 - 48 hours
Subjective/Interval History
-
Date of Service: December 25, 2024
Objective Data
-
Vital Signs:
Vital Signs
Temp Pulse Resp BP Pulse Ox
36.3 C 54 20 98/57 98
12/25/24 07:52 12/25/24 07:52 12/25/24 07:52 12/25/24 07:52 12/25/24 07:52
I&O
12/24/24 12/25/24 12/26/24
06:59 06:59 06:59
Intake Total 960 / 960 480 / 480
Balance 960 / 960 480 / 480
Review of Systems
-
Unable to obtain full review of systems at this time due to: Dementia
Physical Exam
-
General: Well Developed, Well Nourished, Comfortable, Appears Chronically Ill and Cachectic
HEENT: Normocephalic and Atraumatic; Negative Oxygen
Respiratory: Clear to Auscultation and Non Labored Respirations; Negative Accessory Resp Muscle Use
Cardiac: Regular Rhythm and S1/S2; Negative Murmur
GI: Soft, Nontender, Nondistended and Normal Bowel Sounds
Musculoskeletal: No Clubbing, No Cyanosis and No Edema
Neuro: Awake; Negative AO x 3
Psych: Calm and Apparent Dementia
Data Reviewed
-
Labs: Labs Reviewed by me
[2024-12-25] MEDS: SENOKOT-S 1 TABLET PO ×2 (12:39→19:07)
[2024-12-25] MEDS: DULCOLAX 10 MG RECTAL (12:40)
[2024-12-25 15:55] VITALS: BP 113/61
[2024-12-25] MEDS: REMERON 7.5 MG PO (21:37)
[2024-12-25 23:05] VITALS: BP 114/67
[2024-12-25] MEDS: DUONEB 3 ML INH (23:32)
[2024-12-26 06:00] VITALS: BMI 18.4
[2024-12-26 07:00] VITALS: BP 105/60
[2024-12-26] MEDS: KEFLEX 500 MG PO ×2 (07:32→19:53)
[2024-12-26] MEDS: HEPARIN 5000 UNITS SC ×2 (07:32→19:53)
[2024-12-26] MEDS: ProAmatine 5 MG PO ×3 (07:32→17:02)
[2024-12-26] MEDS: LEXAPRO 20 MG PO (07:32)
[2024-12-26] MEDS: SENOKOT-S 1 TABLET PO ×2 (07:32→19:53)
[2024-12-26] MEDS: MIRALAX 17 GRAMS PO (07:32)
[2024-12-26] MEDS: DESENEX/MITRAZOL/ZEASORB 1 APPLIC TOPICAL ×2 (07:33→19:53)
[2024-12-26] MEDS: ARICEPT 10 MG PO (07:33)
[2024-12-26] MEDS: RISPERDAL 0.5 MG PO ×2 (07:33→19:53)
[2024-12-26 10:08] VITALS: BP 113/61; BP 82/54; PULSE 60
[2024-12-26 10:46] VITALS: BP 113/61; BP 82/54
--- NOTE | 2024-12-26 11:08 | W.PN.HOSP.TC ---
Today's Communication/Plan
-
dispo planning to SNF
Assessment / Plan
Assessment / Plan
A/P:
# Septic shock with acute metabolic encephalopathy due to complicated UTI in a male and acute stercoral colitis
Cultures reviewed
changed Rocephin to PO keflex, cont total Abx 14 days
s/p IVFs (lactic acidosis resolved, WBC normalized, SOTO resolved)
cont midodrine for chronic orthostatic hypotension
Check bladder scan if able, pt able to urinate on own
Of note, CT AP noted No renal or ureteral calculus, mild distention of both ureters, Nonspecific mild bilateral perinephric soft tissue stranding.
# CT showed stercoral proctitis
cont MiraLAX, Senokot-S BID
s/p Dulcolax [place] x1
# Acute COPD exacerbation
CXR 12/19 showed Stable radiographic appearance from 12/16/2024. Radiographic pattern highly suggestive of diffuse interstitial fibrosis
off steroids
# Acute hypoxic resp insufficiency , resolved
Pt was placed on 4L NC, weaned back to RA
CXR noted increased reticulonodular markings involving both lungs, pattern highly suggestive of interstitial fibrosis.
No evidence for new lung parenchymal opacity when comparing to recent radiographs. No evidence for significant pleural effusion bilaterally.
# Sinus bradycardia, resolved
# Hypokalemia
Replete PRN
# Senile Dementia with Behavioral Disturbance
cont Aricept, Lexapro, Remeron
DVT proph: HSQ
code status-: Full code
Dispo: SNF, pending bed acceptance/availability
DW RN
Anticipated Discharge: Within 24 hours
Subjective/Interval History
-
Date of Service: December 26, 2024
Objective Data
-
Vital Signs:
Vital Signs
Temp Pulse Resp BP Pulse Ox
36.6 C 55 16 105/60 97
12/26/24 07:00 12/26/24 07:00 12/26/24 07:00 12/26/24 07:00 12/26/24 07:30
I&O
12/25/24 12/26/24 12/27/24
06:59 06:59 06:59
Intake Total 480 / 480 240 / 240
Output Total 300 / 500 200 / 200
Balance 480 / 480 -60 / -260 -200 / -200
Review of Systems
-
Unable to obtain full review of systems at this time due to: Dementia
Physical Exam
-
General: Well Developed, Well Nourished, Comfortable, Appears Chronically Ill and Cachectic
HEENT: Normocephalic and Atraumatic; Negative Oxygen
Respiratory: Clear to Auscultation and Non Labored Respirations; Negative Accessory Resp Muscle Use
Cardiac: Regular Rhythm and S1/S2; Negative Murmur
GI: Soft, Nontender, Nondistended and Normal Bowel Sounds
Musculoskeletal: No Clubbing, No Cyanosis and No Edema
Neuro: Awake; Negative AO x 3
Psych: Calm and Apparent Dementia
Data Reviewed
-
Labs: Labs Reviewed by me
[2024-12-26 15:05] VITALS: BP 106/57
[2024-12-26] MEDS: REMERON 7.5 MG PO (22:17)
[2024-12-26 23:00] VITALS: BP 137/78
[2024-12-27 07:12] VITALS: BMI 18.6
[2024-12-27] MEDS: RISPERDAL 0.5 MG PO ×2 (07:34→20:36)
[2024-12-27] MEDS: ARICEPT 10 MG PO (07:34)
[2024-12-27] MEDS: ProAmatine 5 MG PO ×3 (07:35→16:13)
[2024-12-27] MEDS: KEFLEX 500 MG PO ×2 (07:35→20:36)
[2024-12-27] MEDS: LEXAPRO 20 MG PO (07:35)
[2024-12-27] MEDS: SENOKOT-S 1 TABLET PO (07:35)
[2024-12-27] MEDS: MIRALAX 17 GRAMS PO (07:35)
[2024-12-27] MEDS: HEPARIN 5000 UNITS SC ×2 (07:35→20:36)
[2024-12-27] MEDS: DESENEX/MITRAZOL/ZEASORB 1 APPLIC TOPICAL ×2 (07:46→20:37)
[2024-12-27 08:09] VITALS: BP 112/66
--- NOTE | 2024-12-27 11:38 | W.PN.HOSP.TC ---
Today's Communication/Plan
-
for SNF
Assessment / Plan
Assessment / Plan
A/P:
# Septic shock with acute metabolic encephalopathy due to complicated UTI in a male and acute stercoral colitis
Cultures reviewed
changed Rocephin to PO keflex, cont total Abx 14 days
s/p IVFs (lactic acidosis resolved, WBC normalized, SOTO resolved)
cont midodrine for chronic orthostatic hypotension
pt is able to urinate on own
Of note, CT AP noted No renal or ureteral calculus, mild distention of both ureters, Nonspecific mild bilateral perinephric soft tissue stranding.
# CT showed stercoral proctitis
cont MiraLAX, Senokot-S BID
s/p Dulcolax [place] x1
No further constipation
# Acute COPD exacerbation
CXR 12/19 showed Stable radiographic appearance from 12/16/2024. Radiographic pattern highly suggestive of diffuse interstitial fibrosis
off steroids
# Acute hypoxic resp insufficiency , resolved
Pt was placed on 4L NC, weaned back to RA
CXR noted increased reticulonodular markings involving both lungs, pattern highly suggestive of interstitial fibrosis.
No evidence for new lung parenchymal opacity when comparing to recent radiographs. No evidence for significant pleural effusion bilaterally.
# Sinus bradycardia, resolved
# Hypokalemia
Replete PRN
# Senile Dementia with Behavioral Disturbance
cont Aricept, Lexapro, Remeron
DVT proph: HSQ
code status-: Full code
Dispo: SNF, pending bed acceptance/availability
Anticipated Discharge: Within 24 hours
Subjective/Interval History
-
Date of Service: December 27, 2024
Objective Data
-
Vital Signs:
Vital Signs
Temp Pulse Resp BP Pulse Ox
36.3 C 58 17 112/66 97
12/27/24 08:09 12/27/24 08:09 12/27/24 08:09 12/27/24 08:09 12/27/24 08:09
I&O
12/26/24 12/27/24 12/28/24
06:59 06:59 06:59
Intake Total 240 / 240 1080 / 1080
Output Total 300 / 500 200 / 200
Balance -60 / -260 880 / 880
Review of Systems
-
Unable to obtain full review of systems at this time due to: Dementia
Physical Exam
-
General: Well Developed, Well Nourished, Comfortable, Appears Chronically Ill and Cachectic
HEENT: Normocephalic and Atraumatic; Negative Oxygen
Respiratory: Clear to Auscultation and Non Labored Respirations; Negative Accessory Resp Muscle Use
Cardiac: Regular Rhythm and S1/S2; Negative Murmur
GI: Soft, Nontender, Nondistended and Normal Bowel Sounds
Musculoskeletal: No Clubbing, No Cyanosis and No Edema
Neuro: Negative AO x 3
Psych: Calm and Apparent Dementia
Data Reviewed
-
Labs: Labs Reviewed by me
--- NOTE | 2024-12-27 14:12 | CM ---
CM following re: discharge planning.
Reviewed pt's chart, met with pt.
PT and OT continue recommending SNF level of care. [facility] SNF, [facility]F and [facility] denied a referral. [facility] SNF will need additional information closer to discharge in order to accept the pt.
Patient resides at [facility] unit and uses a walker.
D/C plan: [facility] for a short term rehab. Awaiting for confirmation.
CM will follow with discharge plan updates as hospitalization progresses
[2024-12-27 15:11] VITALS: BP 104/61
[2024-12-27] MEDS: SENOKOT-S PO (20:38)
[2024-12-27] MEDS: REMERON 7.5 MG PO (22:33)
[2024-12-28 00:07] VITALS: BP 123/92
[2024-12-28 06:00] VITALS: BMI 17.8
[2024-12-28 07:23] VITALS: BP 110/71
[2024-12-28] MEDS: ProAmatine 5 MG PO ×3 (08:45→17:31)
[2024-12-28] MEDS: ARICEPT 10 MG PO (08:46)
[2024-12-28] MEDS: KEFLEX 500 MG PO ×2 (08:46→21:41)
[2024-12-28] MEDS: LEXAPRO 20 MG PO (08:46)
[2024-12-28] MEDS: MIRALAX 17 GRAMS PO (08:46)
[2024-12-28] MEDS: HEPARIN 5000 UNITS SC ×2 (08:47→21:33)
[2024-12-28] MEDS: SENOKOT-S 1 TABLET PO ×2 (08:47→21:41)
[2024-12-28] MEDS: RISPERDAL 0.5 MG PO ×2 (08:47→21:41)
[2024-12-28] MEDS: DESENEX/MITRAZOL/ZEASORB 1 APPLIC TOPICAL ×2 (08:53→21:43)
--- NOTE | 2024-12-28 09:11 | W.PN.HOSP.TC ---
Today's Communication/Plan
-
see A/P
Assessment / Plan
Assessment / Plan
A/P:
# Septic shock with acute metabolic encephalopathy due to complicated UTI in a male and acute stercoral colitis
Cultures reviewed
changed Rocephin to PO keflex, cont Abx for total 14 days
s/p IVFs (lactic acidosis resolved, WBC normalized, SOTO resolved)
cont midodrine for chronic orthostatic hypotension
pt is able to urinate on own
Of note, CT AP noted No renal or ureteral calculus, mild distention of both ureters, Nonspecific mild bilateral perinephric soft tissue stranding.
# CT showed stercoral proctitis
cont MiraLAX, Senokot-S BID
s/p Dulcolax [place] x1
No further constipation
# Acute COPD exacerbation
CXR 12/19 showed Stable radiographic appearance from 12/16/2024. Radiographic pattern highly suggestive of diffuse interstitial fibrosis
off steroids
# Acute hypoxic resp insufficiency , resolved
Pt was placed on 4L NC, weaned back to RA
CXR noted increased reticulonodular markings involving both lungs, pattern highly suggestive of interstitial fibrosis.
No evidence for new lung parenchymal opacity when comparing to recent radiographs. No evidence for significant pleural effusion bilaterally.
# Sinus bradycardia, resolved
# Hypokalemia
Replete PRN
# Senile Dementia with Behavioral Disturbance
cont Aricept, Lexapro, Remeron
DVT proph: HSQ
code status-: Full code
Dispo: SNF, pending bed acceptance/availability
DW RN
Anticipated Discharge: Within 24 hours
Subjective/Interval History
-
Date of Service: December 28, 2024
Objective Data
-
Vital Signs:
Vital Signs
Temp Pulse Resp BP Pulse Ox
36.4 C 63 17 110/71 95
12/28/24 07:23 12/28/24 08:45 12/28/24 07:23 12/28/24 08:45 12/28/24 07:23
I&O
12/27/24 12/28/24 12/29/24
06:59 06:59 06:59
Intake Total 1080 / 1080 120 / 120
Output Total 200 / 200
Balance 880 / 880 120 / 120
Review of Systems
-
Unable to obtain full review of systems at this time due to: Dementia
Physical Exam
-
General: Well Developed, Well Nourished, Comfortable, Appears Chronically Ill and Cachectic
HEENT: Normocephalic and Atraumatic; Negative Oxygen
Respiratory: Clear to Auscultation and Non Labored Respirations; Negative Accessory Resp Muscle Use
Cardiac: Regular Rhythm and S1/S2; Negative Murmur
GI: Soft, Nontender, Nondistended and Normal Bowel Sounds
Musculoskeletal: No Clubbing, No Cyanosis and No Edema
Neuro: Negative AO x 3
Psych: Calm and Apparent Dementia
Data Reviewed
-
Labs: Labs Reviewed by me
[2024-12-28 12:17] VITALS: BP 117/65; PULSE 58; O2SAT 96
[2024-12-28 12:30] VITALS: BP 117/65; PULSE 59; O2SAT 93
[2024-12-28 14:50] VITALS: BP 109/56
--- NOTE | 2024-12-28 15:00 | CM ---
Spoke with patient daughter Wendy - no bed avail at [facility]
discussed additional SNF to add in [facility] SNF added
spoke with Citlaly addison
PLAN: SNF, pending bed availability, will need to obtain insurance auth
[2024-12-28] MEDS: REMERON 7.5 MG PO (22:58)
[2024-12-28 23:00] VITALS: BP 115/77
[2024-12-29 05:43] VITALS: BMI 18.1
[2024-12-29 07:20] VITALS: BP 102/59
[2024-12-29] MEDS: KEFLEX 500 MG PO ×2 (08:25→20:16)
[2024-12-29] MEDS: MIRALAX 17 GRAMS PO (08:25)
[2024-12-29] MEDS: ProAmatine 5 MG PO ×3 (08:25→16:40)
[2024-12-29] MEDS: HEPARIN 5000 UNITS SC ×2 (08:26→20:17)
[2024-12-29] MEDS: LEXAPRO 20 MG PO (08:26)
[2024-12-29] MEDS: ARICEPT 10 MG PO (08:26)
[2024-12-29] MEDS: SENOKOT-S 1 TABLET PO ×2 (08:26→20:18)
[2024-12-29] MEDS: RISPERDAL 0.5 MG PO ×2 (08:26→20:19)
[2024-12-29] MEDS: DESENEX/MITRAZOL/ZEASORB 1 APPLIC TOPICAL ×2 (08:31→20:21)
--- NOTE | 2024-12-29 11:29 | W.PN.HOSP.TC ---
Today's Communication/Plan
-
pending SNF
Assessment / Plan
Assessment / Plan
A/P:
# Septic shock with acute metabolic encephalopathy due to complicated UTI in a male and acute stercoral colitis
Cultures reviewed
changed Rocephin to PO keflex, cont Abx for total 14 days
s/p IVFs (lactic acidosis resolved, WBC normalized, SOTO resolved)
cont midodrine for chronic orthostatic hypotension
pt is able to urinate on own
Of note, CT AP noted No renal or ureteral calculus, mild distention of both ureters, Nonspecific mild bilateral perinephric soft tissue stranding.
# CT showed stercoral proctitis
cont MiraLAX, Senokot-S BID
s/p Dulcolax [place] x1
No further constipation
# Acute COPD exacerbation
CXR 12/19 showed Stable radiographic appearance from 12/16/2024. Radiographic pattern highly suggestive of diffuse interstitial fibrosis
off steroids
# Acute hypoxic resp insufficiency , resolved
Pt was placed on 4L NC, weaned back to RA
CXR noted increased reticulonodular markings involving both lungs, pattern highly suggestive of interstitial fibrosis.
No evidence for new lung parenchymal opacity when comparing to recent radiographs. No evidence for significant pleural effusion bilaterally.
# Sinus bradycardia, resolved
# Hypokalemia
Replete PRN
# Senile Dementia with Behavioral Disturbance
cont Aricept, Lexapro, Remeron
DVT proph: HSQ
code status-: Full code
Dispo: SNF, pending bed acceptance/availability
Anticipated Discharge: Within 24 hours
Subjective/Interval History
-
Date of Service: December 29, 2024
Objective Data
-
Vital Signs:
Vital Signs
Temp Pulse Resp BP Pulse Ox
36.6 C 51 17 102/59 95
12/29/24 07:20 12/29/24 08:25 12/29/24 07:20 12/29/24 08:25 12/29/24 07:20
I&O
12/28/24 12/29/24 12/30/24
06:59 06:59 06:59
Intake Total 120 / 120 210 / 210
Output Total 200 / 200
Balance 120 / 120 10 / 10
Review of Systems
-
Unable to obtain full review of systems at this time due to: Dementia
Physical Exam
-
General: Well Developed, Well Nourished, Comfortable, Appears Chronically Ill and Cachectic
HEENT: Normocephalic and Atraumatic; Negative Oxygen
Respiratory: Clear to Auscultation and Non Labored Respirations; Negative Accessory Resp Muscle Use
Cardiac: Regular Rhythm and S1/S2; Negative Murmur
GI: Soft, Nontender, Nondistended and Normal Bowel Sounds
Musculoskeletal: No Clubbing, No Cyanosis and No Edema
Neuro: Negative AO x 3
Psych: Calm and Apparent Dementia
Data Reviewed
-
Labs: Labs Reviewed by me
[2024-12-29 14:56] VITALS: BP 105/65
--- NOTE | 2024-12-29 14:59 | CM ---
Addendum entered by Kari Avelar 12/29/24 16:06:
Auth approved for [facility] for tomorrow
Auth approval cert #: [id number]
Start date 12/30/24 End date 01/05/25
Fax updates to [phone]
Auth information given to Citlaly addison at [facility]
PLAN: [facility] SNF on 12/30
Report #: [phone]
Fax #: [phone]
transportation forms on chart
Original Note:
Patient chart reviewed
Bed available tomorrow at [facility] per Citlaly addison
Spoke with daughter Wendy who is agreeable. IMM explained & signed.
CM to initiate auth through [employer]
[facility] NPI #: [id number]
Dr. Delvin Edwards NPI #: [id number]
PLAN: [facility] SNF
Report #: [phone]
Fax #: [phone]
transportation forms on chart
[2024-12-29] MEDS: REMERON 7.5 MG PO (21:31)
[2024-12-29 23:00] VITALS: BP 107/63
[2024-12-30 07:48] VITALS: BP 113/68
[2024-12-30] MEDS: ProAmatine 5 MG PO ×2 (09:47→13:55)
[2024-12-30] MEDS: RISPERDAL 0.5 MG PO (09:48)
[2024-12-30] MEDS: SENOKOT-S 1 TABLET PO (09:48)
[2024-12-30] MEDS: ARICEPT 10 MG PO (09:48)
[2024-12-30] MEDS: HEPARIN 5000 UNITS SC (09:48)
[2024-12-30] MEDS: MIRALAX 17 GRAMS PO (09:48)
[2024-12-30] MEDS: LEXAPRO 20 MG PO (09:48)
[2024-12-30] MEDS: DESENEX/MITRAZOL/ZEASORB 1 APPLIC TOPICAL (09:49)
--- NOTE | 2024-12-30 11:06 | W.PN.HOSP.TC ---
Today's Communication/Plan
-
d/c
Assessment / Plan
Assessment / Plan
pt is ab 84 year old male
was medically clear for d/c since 12/22--just received auth now...OK for d/c
Septic shock with acute metabolic encephalopathy due to complicated UTI in a male and acute stercoral colitis
Cultures reviewed
changed Rocephin to PO keflex, cont Abx for total 14 days--completed
s/p IVFs (lactic acidosis resolved, WBC normalized, SOTO resolved)
cont midodrine for chronic orthostatic hypotension
pt is able to urinate on own
Of note, CT AP noted No renal or ureteral calculus, mild distention of both ureters, Nonspecific mild bilateral perinephric soft tissue stranding.
CT showed stercoral proctitis
cont MiraLAX, Senokot-S BID
s/p Dulcolax [place] x1
No further constipation
Acute COPD exacerbation
CXR 12/19 showed Stable radiographic appearance from 12/16/2024. Radiographic pattern highly suggestive of diffuse interstitial fibrosis
off steroids
Acute hypoxic resp insufficiency , resolved
Pt was placed on 4L NC, weaned back to RA
CXR noted increased reticulonodular markings involving both lungs, pattern highly suggestive of interstitial fibrosis.
No evidence for new lung parenchymal opacity when comparing to recent radiographs. No evidence for significant pleural effusion bilaterally.
Sinus bradycardia, resolved
Hypokalemia
Replete PRN
Senile Dementia with Behavioral Disturbance
cont Aricept, Lexapro, Remeron
DVT proph: HSQ
code status- Full code
Dispo: SNF
Anticipated Discharge: Today
Subjective/Interval History
-
Date of Service: December 30, 2024
pt with dementia--no c/o
Objective Data
-
Vital Signs:
max temp for 24 hours
12/29/24
23:00
Temp 98.0 F
Vital Signs
Temp Pulse Resp BP Pulse Ox
97.6 F 55 19 113/68 95
12/30/24 07:48 12/30/24 07:48 12/30/24 07:48 12/30/24 09:47 12/30/24 07:48
I&O
12/29/24 12/30/24 12/31/24
06:59 06:59 06:59
Intake Total 210 / 210 270 / 270
Output Total 200 / 200 100 / 100
Balance 10 170 / 170
Review of Systems
-
Unable to obtain full review of systems at this time due to: Dementia
All other systems: Reviewed and negative
Physical Exam
-
General: Well Developed, No Apparent Distress and Cachectic
HEENT: Normocephalic and Atraumatic
Respiratory: Clear to Auscultation; Negative Wheezes or Rhonchi
Cardiac: Regular Rhythm and S1/S2; Negative Murmur
GI: Soft, Nontender, Nondistended and Normal Bowel Sounds
Musculoskeletal: No Clubbing, No Cyanosis and No Edema
Skin: Warm
Neuro: Awake
Psych: Calm
--- NOTE | 2024-12-30 12:17 | CM ---
Auth approval cert #: [id number]
Start date 12/30/24 End date 01/05/25
Fax updates to [phone]
Patient to be discharged today - notified Citlaly liaison of time.
Left message with daughter Wendy
IMM reviewed yesterday, in chart
PLAN: [facility] SNF
Report #: [phone]
Fax #: [phone]
transportation forms on chart, 1400 transport time set
[2024-12-30 14:00] VITALS: BP 110/63
--- NOTE | 2024-12-30 15:21 | W.DCSUMMARY ---
Discharge Summary
Discharge Data
Date of Admission: 12/17/24
Date of Discharge: 12/30/24
-
Pending Results: No
Hospital Course
Primary care physician : Jen Hall
Principal Discharge diagnosis : Septic shock with acute metabolic encephalopathy due to complicated urinary tract infection, acute stercoral colitis, acute chronic obstructive pulmonary disease exacerbation with acute hypoxemic respiratory
insufficiency
Chronic Discharge diagnosis : Senile dementia with behavioral disturbances
Hospital Course : Patient was an 84-year-old male significant for dementia and chronic obstructive pulmonary disease who presented from his assisted care living for evaluation of lethargy and change in mental status. Staff noted he was lethargic
and was sent to the emergency department. He was noted to be hypotensive with significant leukocytosis. CAT scan done in emergency department showed bladder wall thickening with evidence of constipation and stercoral colitis. Urinalysis was
consistent with infection. Patient was admitted.
Problem #1: Septic shock with acute metabolic encephalopathy due to complicated urinary tract infection and acute stercoral colitis. Patient was given a milk and molasses enema with good results due to his constipation. He was admitted and started
on IV Rocephin which had been eventually changed to oral Keflex at which point he completed a 14-day course. Lactic acidosis resolved, white blood cell count was elevated on admission and resolved with IV fluids. Midodrine was continued for his
chronic orthostatic hypotension. Patient did have a Blake catheter which was removed and had successful trial of voiding.
Problem #2: Acute chronic obstructive pulmonary disease exacerbation with acute hypoxemic respiratory insufficiency. Chest x-ray showed stable radiographic appearance. There was some suggestion of diffuse interstitial fibrosis. He was taken off
steroids. He finished his antibiotic course. Oxygen was initially at 4 L and weaned back to room air.
Problem #3: Senile dementia with behavioral disturbances. Patient had been on a nursing one-to-one for protective reasons. He had been off one-to-one for significant amounts of time prior to discharge. He was continued on Aricept, Lexapro, and
Remeron.
Patient unfortunately cannot return to his assisted living and needs halfway facility. He had been stable for discharge since December 22, 2024 but unfortunately could not get insurance authorization until now. If there are any questions
regarding this dictation or his hospital stay, please not hesitate to call. Our office number is [phone].
Important imaging findings :
CT SCAN ABDOMEN/PELVIS IMPRESSION:
No renal, ureteral, or urinary bladder calculus. Findings suspicious for cystitis. Mild bilateral hydroureter without evidence of obstructive uropathy.
Large solid fecal burden rectum which is moderately distended with minor wall thickening and surrounding soft tissue stranding. Findings suspicious for possibility of stercoral proctitis.
2.6 cm infrarenal abdominal aortic aneurysm.
COPD. Interstitial fibrotic changes. Moderate hiatal hernia.
Discharge Plan
-
Patient Disposition: [facility]/SNF
Discharge Diagnosis/Procedures: Septic shock with acute kidney injury and acute metabolic encephalopathy due to acute urinary tract infection with acute stercoral colitis, acute chronic obstructive pulmonary disease exacerbation, senile dementia
with behavioral disturbance, sinus bradycardia, hypokalemia
Condition: Fair
Diet: Other diet
Additional Diets: Minced and moist with thin liquids, with precaution
Activity: As tolerated
Driving Restrictions: No driving
Bathing Restrictions: None
Referrals:
UNKNOWN,NO INTERVIEW [Family Provider] - in less than 1 week
Prescriptions:
New
ipratropium-albuterol 0.5 mg-3 mg(2.5 mg base)/3 mL Solution For Nebulization
3 ml inhalation R Q4HPRN PRN (Reason: SOB/WHEEZING) Qty: 0 0RF
midodrine 5 mg Tablet
5 mg PO TID @ 0800,1200,1700 Qty: 0 0RF
acetaminophen 325 mg Tablet
650 mg PO Q4HPRN PRN (Reason: Mild Pain / Temp > 101) Qty: 0 0RF
polyethylene glycol 3350 17 gram Powder In Packet
17 g PO DAILY Qty: 0 0RF
sennosides-docusate sodium 8.6-50 mg Tablet
1 tab PO BID Qty: 0 0RF
miconazole nitrate [Miconazorb AF] 2 % Powder
1 applic topical BID Qty: 0 0RF
Continued
mirtazapine 7.5 mg Tablet
7.5 mg PO HS
donepezil 10 mg Tablet
10 mg PO DAILY
risperidone 0.5 mg Tablet
0.5 mg PO BID
Rx Instructions:
HOLD FOR BP<100/60
escitalopram oxalate 20 mg Tablet
20 mg PO DAILY
Discontinued
mupirocin 2 % Ointment
1 applic TOPICAL BID
Rx Instructions:
WASH RIGHT KNEE,PAT DRY THEN APPLY OINTMENT AND BANDAID
midodrine 5 mg Tablet
10 mg PO MEALS
Rx Instructions:
HOLD FOR SBP>110
docusate sodium 100 mg Capsule
100 mg PO HS PRN (Reason: STOOL SOFTENER)
Discharge Orders:
Discharge Patient (As Directed); Ordered 12/30/24
Ordered By: Dolly Johnson
Discharge Date and Time
Discharge Date/Time: 12/30/24 14:34
Print Language: [place]
== END 2024-12-30 14:34 | DRG 871 ==
LOC: 3 WEST ACU 01:40
PROVIDERS: Internal Medicine; Nurse Practitioner Family; Registered Nurse; ADMITTING PHYSICIAN Hospitalist; ATTENDING PHYSICIAN Internal Medicine; EMERGENCY PHYSICIAN Emergency Medicine
DX: A41.9 Sepsis, unspecified organism (principal); G93.41 Metabolic encephalopathy; R65.21 Severe sepsis with septic shock; N39.0 Urinary tract infection, site not specified; J44.1 Chronic obstructive pulmonary disease with (acute) exacerbation; E87.20 Acidosis, unspecified; F02.818 Dementia in other diseases classified elsewhere, unspecified severity, with other behavioral disturbance; F02.84 Dementia in other diseases classified elsewhere, unspecified severity, with anxiety; F02.83 Dementia in other diseases classified elsewhere, unspecified severity, with mood disturbance; N17.9 Acute kidney failure, unspecified; R09.02 Hypoxemia; K52.89 Other specified noninfective gastroenteritis and colitis; K59.00 Constipation, unspecified; I95.1 Orthostatic hypotension; G30.9 Alzheimer's disease, unspecified; K44.9 Diaphragmatic hernia without obstruction or gangrene; I71.43 Infrarenal abdominal aortic aneurysm, without rupture; E87.6 Hypokalemia; F32.A Depression, unspecified; Z11.52 Encounter for screening for COVID-19; Z87.891 Personal history of nicotine dependence; Z95.5 Presence of coronary angioplasty implant and graft; L89.101 Pressure ulcer of unspecified part of back, stage 1
CPT/HCPCS: 36600; 51701; 71045; 71046; 74176; 74230; 80048; 80053; 81003; 81015; 82805; 83605; 83735; 85025; 85027; 87040; 87070; 87071; 87086; 87186; 87502; 87811; 92526; 92610; 92611; 93005; 94640; 96361; 96365; 97163; 97167; 97530; 99291